=== PATIENT | female | born 1950 | race Caucasian/White ===

== ENCOUNTER → 2023-06-16 14:53 | Outpatient (REF) | payer MEDICARE, OTHER, SELFPAY | LOC: RAD 14:53 | PROVIDERS: ATTENDING PHYSICIAN Specialist; FAMILY PHYSICIAN Family Medicine | DX: L76.32 Postprocedural hematoma of skin and subcutaneous tissue following other procedure (principal) | CPT/HCPCS: 76705 ==

== ENCOUNTER 2023-07-07 23:49 | Emergency (ER) | payer MEDICARE, OTHER, SELFPAY ==
[2023-07-07 23:52] VITALS: BP 118/63
--- NOTE | 2023-07-08 00:30 | ED.GENMED ---
History of Present Illness
General
Chief Complaint: Post Operative Problem(s)
Source: patient, records and spouse
Exam Limitations: none
Time Seen by Provider: 07/08/23 00:00
Nursing documentation reviewed up to this point in time: agreed with
Travel History
Have you had any contact with someone who has COVID-19?: No
Do you have any symptoms of coronavirus? Fever > 100 degrees, chills, cough, shortness of breath, sore throat, loss of taste or smell, muscle aches, or headache?: No
History of Present Illness
History of Present Illness:
Patient is a 73-year-old female who 8 days ago had a tummy tuck which dehisced. Patient does see wound center 1230 this afternoon. Tonight patient went to the bathroom and pulled out this gauze. The wound was healing by secondary intention.
Patient denies lightheadedness or weakness but does feel fatigued.
Past History
Past History
ED Past Medical History: Other (Osteoperosis)
ED Past Surgical History: and Gynecological (Hysterectomy)
Social History
Tobacco: Non-smoker
Alcohol: Other (Regularly)
Drug: None
Personal:
Living: with family
Review of Systems
Review of Systems
All Other Systems: Not applicable
Phy Exam
General Physical Exam
General Presentation: well appearing and no apparent distress
General age: appears stated age
General Skin: warm and dry
General Habitus: normal
General Mental: alert
General Hydration: appears well hydrated
ENT Exam
ENT Exam: neck supple and normocephalic
Gastrointestinal Exam
Gastrointestinal Exam: normal bowel sounds, non tender and other (Dehiscence of wound and left upper approximately 3 x 4 cm as well as dehiscence in a suprapubic wound)
Neurological Exam
Neurological Exam: alert, oriented x3, CN II-XII intact and no motor deficits
Skin Exam
Skin Exam: normal color, warm/dry and other (As stated in the abdominal exam)
Scores
Heart Failure Risk
Heart Failure Risk Score: Not Applicable
Heart Score for Chest Pain Patients
STEMI patient?: Not applicable
Withdrawal Assessment of Alcohol
Withdrawal Assessment Completed?: Not applicable
Course
Vital Signs
Initial and Last Documented VS:
Initial Vital Signs
Temp Pulse Resp BP Pulse Ox
97.6 F 72 24 118/63 98
07/07/23 23:52 07/07/23 23:52 07/07/23 23:52 07/07/23 23:52 07/07/23 23:52
Last Documented Vital Signs
Temp Pulse Resp BP Pulse Ox
97.6 F 72 24 118/63 98
07/07/23 23:52 07/07/23 23:52 07/07/23 23:52 07/07/23 23:52 07/07/23 23:52
*Radiology
Radiology exam reviewed: other (na)
*Pulse Oximetry
Patient hypoxic: no
*EKG
Interpreted by ED Provider?: NA
*Fire Extinguisher Mechanic Interpretation
Rate: Fire Extinguisher Mechanic- N/A
*Critical Care Note
Total Time (30-74mins, 75-104mins- exclusive of procedures): Not Applicable
Update Note
Update Note:
Packing removed from both wounds. Wound is dry. The wounds were repacked with Kerlix and then moistened with normal saline. ABD pads were placed over them as well as a abdominal binder. This is to remain intact until her appointment with wound
at 1230 today
ED Attending Note
-
Portions of this chart may have been created with voice recognition software.� Occasional wrong word or��sound alike� substitutions may have occurred due to the inherent limitations of voice recognition software.
Discharge Plan
Departure
Patient Disposition: Home (Routine Discharge)
Date of Disposition: 07/08/23
Time of Disposition: 00:58
Patient with high blood pressure during this ER visit?: No
Condition: Good
Covid-19: Not Applicable
Discharge Problem:
Dehiscence of operative wound
Instructions: Wound Care (DC)
Prescriptions:
No Action
Tegretol
PRN PRN (Reason: trigeminal neuralgia)
Referrals:
Isabela Cloud MD [Family Provider] - As needed
Activity Restrictions/Additional Instructions:
See the wound center as scheduled tomorrow. Keep dressing in place until then.
Interventions
Interventions:
*Risk Screen - Suicide Last Done: 07/07/23 23:52
*Neglect/Abuse Screening Last Done: 07/07/23 23:52
*ED COVID-19 Vaccine History Last Done: 07/07/23 23:52
ED-Skin Assessment Last Done: 07/08/23 00:55
Discharge Date and Time
Print Language: KHMER
== END 2023-07-08 01:38 | disposition home or self-care (01) ==
LOC: EMR 23:49
PROVIDERS: EMERGENCY PHYSICIAN Emergency Medicine; FAMILY PHYSICIAN Family Medicine
DX: T81.31XA Disruption of external operation (surgical) wound, not elsewhere classified, initial encounter (principal)
CPT/HCPCS: 99281

== ENCOUNTER → 2023-07-08 12:36 | Outpatient (REF) | payer MEDICARE, OTHER, SELFPAY | LOC: WOUND 12:36 | PROVIDERS: ATTENDING PHYSICIAN Surgery; FAMILY PHYSICIAN Family Medicine | DX: T81.31XA Disruption of external operation (surgical) wound, not elsewhere classified, initial encounter (principal); Y83.8 Other surgical procedures as the cause of abnormal reaction of the patient, or of later complication, without mention of misadventure at the time of the procedure; S31.109A Unspecified open wound of abdominal wall, unspecified quadrant without penetration into peritoneal cavity, initial encounter; X58.XXXA Exposure to other specified factors, initial encounter; E78.00 Pure hypercholesterolemia, unspecified; E78.89 Other lipoprotein metabolism disorders; G50.0 Trigeminal neuralgia | CPT/HCPCS: 99204 ==

== ENCOUNTER 2023-07-13 12:32 | Emergency (ER) | payer MEDICARE, OTHER, SELFPAY ==
[2023-07-13 12:42] VITALS: BP 130/86
--- NOTE | 2023-07-13 13:19 | ED.GENMED ---
History of Present Illness
General
Chief Complaint: DVT/Possible Blood Clot
Source: patient
Exam Limitations: none
Time Seen by Provider: 07/13/23 13:02
Nursing documentation reviewed up to this point in time: agreed with
Travel History
Have you had any contact with someone who has COVID-19?: No
Do you have any symptoms of coronavirus? Fever > 100 degrees, chills, cough, shortness of breath, sore throat, loss of taste or smell, muscle aches, or headache?: No
History of Present Illness
History of Present Illness:
73-year-old female with past medical history of recent tummy tuck few weeks ago as well as revision and complication 1 week ago who has been following with wound care presenting to the emergency department today with concerns of DVT to left lower
extremity after feeling calf discomfort and she had an outpatient ordered ultrasound by her surgeon. This was the left peroneal vein. Denies any chest pain shortness of breath or additional concerns no history of blood clots.
Past History
Past History
ED Past Medical History: Other (Osteoperosis)
ED Past Surgical History: and Gynecological (Hysterectomy)
Social History
Tobacco: Non-smoker
Alcohol: Other (Regularly)
Drug: None
Personal:
Living: with family
Review of Systems
Review of Systems
Allergies reviewed?: Yes
All Other Systems: ROS reviewed and negative except as documented in HPI and ROS
Phy Exam
Physical Exam
Physical Exam:
GENERAL: Alert , in no apparent distress
EYE: pupils equal and reactive
NECK: Supple, no significant adenopathy.
ENT: o/p clr, mmm.
CARDIAC: Regular rate and rhythm .
LUNGS: Clear breath sounds bilaterally, no acute respiratory distress, no wheezes/rales/rhonchi
ABDOMEN: Soft, without focal tenderness, no r/g, no cvat
NEUROLOGICAL: Alert and oriented, no focal neuro deficits
SKIN: Warm and dry, skin intact.
MUSCULOSKELETAL: Subtle swelling to the left calf compared to the right good distal pulses normal skin tone good range of motion and strength, well perfused.
PSYCH: Normal and appropriate interaction.
Course
Orders/Labs/Results
Orders:
Orders
07/13/23 12:51
Complete Blood Count/With Diff Urgent
Comprehensive Metabolic Panel Urgent
Prothrombin Time Urgent
07/13/23 13:59
Apixaban [Eliquis] 10 mg PO ONCE ONE
Abnormal Lab Results
07/13/23
12:51
WBC 12.4 H 10^3/uL
(4.8-10.8)
RBC 3.07 L 10^6/uL
(4.20-5.40)
Hgb 9.5 L g/dL
(12.0-16.0)
Hct 28.2 L %
(37.0-47.0)
Plt Count 794 H 10^3/uL
(130-400)
Abs Immat Gran (auto) 0.1 H 10^3/uL
(0-0.05)
Absolute Neuts (auto) 8.1 H 10^3/uL
(1.4-6.5)
Absolute Monos (auto) 1.4 H 10^3/uL
(0.1-0.6)
Immature Gran % 1.1 H %
(0-0.5)
Lymphocytes % 20.4 L %
(20.5-51.1)
Monocytes % 11.1 H %
(1.7-9.3)
Sodium 134 L mmol/L
(135-145)
Creatinine 0.4 L mg/dL
(0.6-1.0)
Total Protein 6.0 L g/dl
(6.3-8.2)
Albumin 3.0 L g/dl
(3.5-5.0)
07/13/23 12:51
07/13/23 12:51
Vital Signs
Initial and Last Documented VS:
Initial Vital Signs
Temp Pulse Resp BP Pulse Ox
99.3 F 83 20 130/86 99
07/13/23 12:42 07/13/23 12:42 07/13/23 12:42 07/13/23 12:42 07/13/23 12:42
Last Documented Vital Signs
Temp Pulse Resp BP Pulse Ox
99.3 F 83 20 130/86 99
07/13/23 12:42 07/13/23 12:42 07/13/23 12:42 07/13/23 12:42 07/13/23 12:42
MDM/Problems Addressed
MDM/Problems Addressed:
73-year-old female presenting to the emergency department today with concerns of left peroneal vein occlusive thrombus. Has had calf pain for the last few days and outpatient ultrasound to confirm this. Denies chest pain. No history of blood
clots but did recently have surgery and infectious complication has been treated as an outpatient over the past week or so. She claims that the infection seems to be improving. This was discussed with patient surgical team that is okay with
starting the anticoagulant otherwise patient is stable for discharge given first dose here and given return precautions for any signs of bleeding. She denies any history of GI bleeding or bleeding concerns.
*Critical Care Note
Total Time (30-74mins, 75-104mins- exclusive of procedures): Not Applicable
ED Attending Note
-
Portions of this chart may have been created with voice recognition software.� Occasional wrong word or��sound alike� substitutions may have occurred due to the inherent limitations of voice recognition software.
Discharge Plan
Departure
Patient Disposition: Home (Routine Discharge)
Date of Disposition: 07/13/23
Time of Disposition: 14:00
Patient with high blood pressure during this ER visit?: No
Condition: Good
Covid-19: Not Applicable
Discharge Problem:
Left leg DVT
Instructions: Deep Vein Thrombosis (Blood Clots in the Legs) (DC)
Prescriptions:
New
Eliquis DVT-PE Treat 30D Start 5 mg (74 tabs) tablets,dose pack
See Rx Instructions .ROUTE .COMPLEX Qty: 74 0RF
Rx Instructions:
orally per package directions
No Action
Tegretol
PRN PRN (Reason: trigeminal neuralgia)
Activity Restrictions/Additional Instructions:
You came to the emergency department today with concerns of swelling discomfort to your left leg. You are found to have a DVT. Please take Eliquis as prescribed dosing 10 mg twice daily for the next 7 days and then 5 mg twice daily ongoing.
Please follow close with the primary care doctor and your outpatient physicians over the next week or 2 for further management. Return to the emergency department for any worsening, new or concerning symptoms.
Interventions
Interventions:
*Risk Screen - Suicide Last Done: 07/13/23 12:42
*General Assessment Last Done: 07/13/23 12:46
*Neglect/Abuse Screening Last Done: 07/13/23 12:46
ED- Cardiac Assessment Last Done: 07/13/23 13:22
ED- Pulmonary Assessment Last Done: 07/13/23 13:22
ED-Peripheral Vascular Assessment Last Done: 07/13/23 13:22
ED-Skin Assessment Last Done: 07/13/23 13:22
Discharge Date and Time
Print Language: UZBEK
[2023-07-13 13:26] LABS: % Basophils 0.6 % (0-2); % Eosinophils 1.6 % (0-6); % Immature Granulocytes 1.1 % (0-0.5); % Lymphocytes 20.4 % (20.5-51.1); % Monocytes 11.1 % (1.7-9.3); % Neutrophils 65.2 % (42.2-75.2); Absolute Basophils 0.1 10^3/uL (0-0.2); Absolute Eosinophils 0.2 10^3/uL (0-0.7); Absolute Immature Granulocytes 0.1 10^3/uL (0-0.05); Absolute Lymphocytes 2.5 10^3/uL (1.2-3.4); Absolute Monocytes 1.4 10^3/uL (0.1-0.6); Absolute Neutrophils 8.1 10^3/uL (1.4-6.5); Hematocrit 28.2 % (37.0-47.0); Hemoglobin 9.5 g/dL (12.0-16.0); Mean Corp Hgb Conc. 33.7 g/dL (33.0-37.0); Mean Corpuscular Hgb 30.9 pg (27.0-31.0); Mean Corpuscular Volume 91.9 fL (81.0-99.0); Nucleated Red Blood Cells % 0 %; Platelet Count 794 10^3/uL (130-400); Red Blood Cell Count 3.07 10^6/uL (4.20-5.40); White Blood Cell Count 12.4 10^3/uL (4.8-10.8)
[2023-07-13 13:32] LABS: INR 1.09; PT 13.9 Sec (11.4-14.6)
[2023-07-13 13:42] LABS: ALT (SGPT) < 10 U/L (0-35); AST (SGOT) 15 U/L (14-36); Alkaline Phosphatase 102 U/L (38-126); Blood Urea Nitrogen 12 mg/dl (7-17); Calcium 9.4 mg/dl (8.4-10.2); Carbon Dioxide 27 mmol/L (22-30); Chloride 100 mmol/L (98-107); Glucose 94 mg/dl (70-99); Sodium 134 mmol/L (135-145); Total Bilirubin 0.3 mg/dl (0.2-1.3); eGFR > 60.00
[2023-07-13] MEDS: ELIQUIS 10 MG PO (14:09)
== END 2023-07-13 14:28 | disposition home or self-care (01) ==
LOC: EMR 12:32
PROVIDERS: Emergency Medicine; EMERGENCY PHYSICIAN Emergency Medicine; FAMILY PHYSICIAN Family Medicine
DX: I82.402 Acute embolism and thrombosis of unspecified deep veins of left lower extremity (principal)
CPT/HCPCS: 99284; 80053; 85025; 85610; 93971

== ENCOUNTER → 2023-07-16 13:10 | Outpatient (REF) | payer MEDICARE, OTHER, SELFPAY | LOC: WOUND 13:10 | PROVIDERS: ATTENDING PHYSICIAN Surgery; FAMILY PHYSICIAN Family Medicine | DX: T81.31XA Disruption of external operation (surgical) wound, not elsewhere classified, initial encounter (principal); S31.109A Unspecified open wound of abdominal wall, unspecified quadrant without penetration into peritoneal cavity, initial encounter; E78.00 Pure hypercholesterolemia, unspecified; E78.89 Other lipoprotein metabolism disorders; G50.0 Trigeminal neuralgia; Y83.8 Other surgical procedures as the cause of abnormal reaction of the patient, or of later complication, without mention of misadventure at the time of the procedure; X58.XXXA Exposure to other specified factors, initial encounter | CPT/HCPCS: 97605 ==

== ENCOUNTER 2023-07-23 01:55 | Emergency (ER) | payer MEDICARE, OTHER, SELFPAY ==
[2023-07-23 02:08] VITALS: BP 101/66
[2023-07-23 03:30] VITALS: BP 136/71; BMI 26.8
--- NOTE | 2023-07-23 04:19 | EDRN ---
awaiting for provider to see the pt
--- NOTE | 2023-07-23 04:55 | EDRN ---
awaiting for provider to see the pt
--- NOTE | 2023-07-23 05:09 | ED.GENMED ---
History of Present Illness
General
Chief Complaint: Catheter/Tube Problem
Source: patient
Time Seen by Provider: 07/23/23 05:09
Nursing documentation reviewed up to this point in time: agreed with
Travel History
Have you had any contact with someone who has COVID-19?: No
Do you have any symptoms of coronavirus? Fever > 100 degrees, chills, cough, shortness of breath, sore throat, loss of taste or smell, muscle aches, or headache?: No
History of Present Illness
History of Present Illness:
Pleasant 73-year-old female who presents with possibly malfunctioning wound VAC. She had abdominoplasty in June. She had an incisional wound VAC placed. Tonight she states that it has not been draining and she feels that the machine is not
working properly. Patient denies fever, chills, nausea or vomiting. Denies increased pain.
Past History
Past History
ED Past Medical History: Other (Osteoperosis)
ED Past Surgical History: and Gynecological (Hysterectomy)
Social History
Tobacco: Non-smoker
Alcohol: Other (Regularly)
Drug: None
Personal:
Living: with family
Review of Systems
Review of Systems
Allergies reviewed?: Yes
All Other Systems: ROS reviewed and negative except as documented in HPI and ROS
Constitutional: Reports no symptoms
EENT: Reports no symptoms
Respiratory: Reports no symptoms
Cardiac: Reports no symptoms
ABD/GI: Reports no symptoms
: Reports no symptoms
Musculoskeletal: Reports no symptoms
Skin: Reports no symptoms
Neurological: Reports no symptoms
Endocrine: Reports no symptoms
Hematologic/Lymphatic: Reports no symptoms
Psychiatric: Reports anxiety
Phy Exam
General Physical Exam
General Presentation: well appearing
General age: appears stated age
General Skin: warm and dry
General Habitus: normal
General Mental: alert
General Hydration: appears well hydrated
General Chronic Disability: contractures
Cardiovascular Exam
Cardiovascular Exam: regular rate/rhythm and no edema
Course
Vital Signs
Initial and Last Documented VS:
Initial Vital Signs
Temp Pulse Resp BP Pulse Ox
98.2 F 94 20 101/66 99
07/23/23 02:08 07/23/23 02:08 07/23/23 02:08 07/23/23 02:08 07/23/23 02:08
Last Documented Vital Signs
Temp Pulse Resp BP Pulse Ox
97.6 F 82 16 126/85 99
07/23/23 05:28 07/23/23 05:28 07/23/23 05:28 07/23/23 05:28 07/23/23 05:28
*Critical Care Note
Total Time (30-74mins, 75-104mins- exclusive of procedures): Not Applicable
Update Note
Update Note:
Nursing was able to evaluate the wound VAC. It appears to be intact. There is 1 piece of plastic that was not fully sealed. Nursing removed that and fix the seal. Wound VAC was dependent on position and when patient moved positions, the fluid
was able to flow. Patient tolerated procedure well with no immediate adverse effects. Patient due to see her physician today to have the wound VAC removed.
ED Attending Note
-
Portions of this chart may have been created with voice recognition software.� Occasional wrong word or��sound alike� substitutions may have occurred due to the inherent limitations of voice recognition software.
Discharge Plan
Departure
Patient Disposition: Home (Routine Discharge)
Date of Disposition: 07/23/23
Time of Disposition: 05:22
Patient with high blood pressure during this ER visit?: No
Condition: Good
Discharge Problem:
Encounter for management of vacuum-assisted closure (VAC) of wound
Instructions: Wound Care (DC), Negative Pressure Wound Therapy
Prescriptions:
No Action
Eliquis DVT-PE Treat 30D Start 5 mg (74 tabs) tablets,dose pack
See Rx Instructions .ROUTE .COMPLEX Qty: 74 0RF
Rx Instructions:
orally per package directions
carbamazepine [Tegretol] 200 mg Tablet
200 mg PO BID PRN (Reason: pain)
Referrals:
Isabela Cloud MD [Family Provider] -
Activity Restrictions/Additional Instructions:
It was a pleasure meeting you and taking part in your care. We hope for your continued healing and wellness.
Please read discharge instructions in their entirety. However, they are for general education and may not describe your exact diagnosis at discharge. Information on your ER visit and medical conditions were discussed with you along with appropriate
follow up information...
If indicated, please take your medications as instructed and indicated on discharge paperwork.
Please schedule a follow up appointment as directed. Call to schedule an appointment
Please return to the emergency department with ANY change in, persisting, or worsening of symptoms. If any of your symptoms do not improve, or persist, or become more severe within 6-12 hours, please return to the emergency department for further
care.
Please return to the emergency department if you develop a headache, neck pain/stiffness, fever greater than 100.4F, chest pain, shortness of breath, persistent nausea, vomiting, slurred speech, difficulty walking, numbness/tingling, weakness, signs
of infection or any other symptoms that are worrisome to you.
If you have any questions or concerns please do not hesitate to call the Hospital at or E-mail me directly at [email or web address]
Interventions
Interventions:
*Risk Screen - Suicide Last Done: 07/23/23 02:08
*General Assessment Last Done: 07/23/23 02:08
*Neglect/Abuse Screening Last Done: 07/23/23 02:08
ED- Fall Risk Assessment Last Done: 07/23/23 02:08
*ED COVID-19 Vaccine History Last Done: 07/23/23 02:08
*Nursing Disposition Last Done: 07/23/23 05:28
OU-Heiqsb-Kfgbvwoktn Assessment Last Done: 07/23/23 03:30
ED-Female Genitourinary Assessment Last Done: 07/23/23 03:30
ED-Skin Assessment Last Done: 07/23/23 03:30
Discharge Date and Time
Discharge Date/Time: 07/23/23 05:50
Print Language: TURKISH
[2023-07-23 05:28] VITALS: BP 126/85
--- NOTE | 2023-07-23 05:37 | EDRN ---
Dr. Merritt at the pts bedside speaking with the pt
== END 2023-07-23 05:50 | disposition home or self-care (01) ==
LOC: EMR 01:55
PROVIDERS: EMERGENCY PHYSICIAN Student in an Organized Health Care Education/Training Program; FAMILY PHYSICIAN Family Medicine
DX: Z46.89 Encounter for fitting and adjustment of other specified devices (principal); Z90.710 Acquired absence of both cervix and uterus
CPT/HCPCS: 99282; 97606; 99213

== ENCOUNTER → 2023-07-30 14:12 | Outpatient (REF) | payer MEDICARE, OTHER, SELFPAY | LOC: WOUND 14:12 | PROVIDERS: ATTENDING PHYSICIAN Surgery; FAMILY PHYSICIAN Family Medicine | DX: T81.31XA Disruption of external operation (surgical) wound, not elsewhere classified, initial encounter (principal); Y83.8 Other surgical procedures as the cause of abnormal reaction of the patient, or of later complication, without mention of misadventure at the time of the procedure; E78.00 Pure hypercholesterolemia, unspecified; Z79.01 Long term (current) use of anticoagulants; E78.89 Other lipoprotein metabolism disorders; G50.0 Trigeminal neuralgia | CPT/HCPCS: 97606; 99213 ==

== ENCOUNTER → 2023-07-30 15:48 | Outpatient (REF) | payer MEDICARE, OTHER, SELFPAY ==
[2023-07-30 16:09] VITALS: BP 147/68; BP_SYST 98
[2023-07-30 16:54] VITALS: BP 129/65
== END ==
LOC: RADI 15:48
PROVIDERS: ATTENDING PHYSICIAN Specialist; FAMILY PHYSICIAN Family Medicine
DX: L76.34 Postprocedural seroma of skin and subcutaneous tissue following other procedure (principal); Y83.8 Other surgical procedures as the cause of abnormal reaction of the patient, or of later complication, without mention of misadventure at the time of the procedure
CPT/HCPCS: 10030; 87015; 87070; 87205; C1729; C1769

== ENCOUNTER → 2023-08-06 09:14 | Outpatient (REF) | payer MEDICARE, OTHER, SELFPAY | LOC: WOUND 09:14 | PROVIDERS: ATTENDING PHYSICIAN Surgery; FAMILY PHYSICIAN Family Medicine | DX: T81.31XA Disruption of external operation (surgical) wound, not elsewhere classified, initial encounter (principal); Y83.8 Other surgical procedures as the cause of abnormal reaction of the patient, or of later complication, without mention of misadventure at the time of the procedure; E78.00 Pure hypercholesterolemia, unspecified; E78.89 Other lipoprotein metabolism disorders; G50.0 Trigeminal neuralgia; Z79.01 Long term (current) use of anticoagulants | CPT/HCPCS: 97606; 99213 ==

== ENCOUNTER 2023-08-13 15:24 | Inpatient (IN) | payer MEDICARE, OTHER, SELFPAY ==
[2023-08-13 12:15] VITALS: BP 102/66
--- NOTE | 2023-08-13 13:30 | ED.GENMED ---
History of Present Illness
General
Chief Complaint: Post Operative Problem(s)
Source: patient and physician (Referring surgeon)
Exam Limitations: none
Time Seen by Provider: 08/13/23 12:45
Nursing documentation reviewed up to this point in time: agreed with
Travel History
Have you had any contact with someone who has COVID-19?: No
Do you have any symptoms of coronavirus? Fever > 100 degrees, chills, cough, shortness of breath, sore throat, loss of taste or smell, muscle aches, or headache?: No
History of Present Illness
History of Present Illness:
73-year-old female with a past medical history of trigeminal neuralgia, depression, DVT on Eliquis who presents to the emergency room for evaluation of surgical wound infection. Patient had an abdominoplasty in June with Dr. Crook. This has been
complicated by infection patient has had abscesses drained by interventional radiology and has had a wound VAC. Most recently finished a course of Bactrim 4 days ago for wound infection. Today had a follow-up visit in the office with Dr. Crook
and was having increasing pain around her right lower quadrant abdominal incision; in the office wound was opened up and had foul-smelling purulent drainage that was sent for culture. Wound was packed and patient was referred to the emergency room
to be admitted for IV antibiotics and wound care. Patient has not had any fevers or chills.
Past History
Past History
ED Past Medical History: Other (Osteoperosis)
ED Past Surgical History: and Gynecological (Hysterectomy)
Social History
Tobacco: Non-smoker
Alcohol: Other (Regularly)
Drug: None
Personal:
Living: with family
Review of Systems
Review of Systems
All Other Systems: ROS reviewed and negative except as documented in HPI and ROS
Constitutional: Denies fever or chills
Respiratory: Denies trouble breathing
Cardiac: Denies chest pain
ABD/GI: Reports abdominal pain (Incisional pain); Denies nausea or vomiting
: Denies flank pain
Musculoskeletal: Denies neck pain or back pain
Skin: Reports other (Redness and drainage from incision)
Neurological: Denies headache
Phy Exam
Physical Exam
Physical Exam:
General: Awake, alert, oriented x3; no acute distress
Head: Normocephalic, atraumatic
Eyes: Conjunctiva normal, sclera anicteric
Throat: Airway intact, handling secretions
Neck: Trachea midline, supple without meningismus
Lungs: Clear to auscultation bilaterally, no wheezing, rales, rhonchi
Heart: Regular rate and rhythm, no murmurs, gallops, or rubs
Abd: Soft, non distended patient has; 3 large incisional wounds in the lower abdomen which are packed with moistened gauze; there is a rim of erythema around the wounds; she is tender to palpation across lower abdomen most markedly around her right
lower quadrant wound
Neuro: No gross deficits
Extremities: Warm and well-perfused without any edema
Scores
Heart Failure Risk
Heart Failure Risk Score: Not Applicable
Heart Score for Chest Pain Patients
STEMI patient?: Not applicable
Withdrawal Assessment of Alcohol
Withdrawal Assessment Completed?: Not applicable
Course
Orders/Labs/Results
Orders:
Orders
08/13/23 13:26
PLASTIC SURGERY CONSULT Urgent
Consulting Provider: Solo Crook
Was physician already notified: Yes
Piperacillin/Tazo 3.375 Gram [Zosyn] 3.375 gram in 50 ml IV NOW
Vancomycin [Vancocin] 2,000 mg 0.9% Sodium Chloride 500 ml [Nss] 500 ml IV NOW
08/13/23 13:37
Complete Blood Count/With Diff Urgent
Comprehensive Metabolic Panel Urgent
Lactate Level [Lactic Acid] Urgent
Blood Culture Q30M
MARISSA Source: Blood/Venous
Specimen Description:
08/13/23 13:52
Blood Culture Q30M
MARISSA Source: Blood/Venous
Specimen Description:
Abnormal Lab Results
08/13/23
13:37
WBC 16.0 H 10^3/uL
(4.8-10.8)
RBC 2.69 L 10^6/uL
(4.20-5.40)
Hgb 8.1 L g/dL
(12.0-16.0)
Hct 24.3 L %
(37.0-47.0)
Plt Count 1205 H 10^3/uL
(130-400)
Abs Immat Gran (auto) 0.1 H 10^3/uL
(0-0.05)
Absolute Neuts (auto) 12.7 H 10^3/uL
(1.4-6.5)
Absolute Monos (auto) 1.5 H 10^3/uL
(0.1-0.6)
Immature Gran % 0.9 H %
(0-0.5)
Neutrophils % 79.7 H %
(42.2-75.2)
Lymphocytes % 9.6 L %
(20.5-51.1)
Sodium 130 L mmol/L
(135-145)
Carbon Dioxide 18 L mmol/L
(22-30)
Creatinine 0.4 L mg/dL
(0.6-1.0)
Glucose 170 H mg/dl
(70-99)
Alkaline Phosphatase 174 H U/L
(38-126)
Albumin 3.1 L g/dl
(3.5-5.0)
08/13/23 13:37
08/13/23 13:37
Vital Signs
Initial and Last Documented VS:
Initial Vital Signs
Temp Pulse Resp BP Pulse Ox
36.8 C 113 16 102/66 98
08/13/23 12:15 08/13/23 12:15 08/13/23 12:15 08/13/23 12:15 08/13/23 12:15
Last Documented Vital Signs
Temp Pulse Resp BP Pulse Ox
36.8 C 113 16 102/66 98
08/13/23 12:15 08/13/23 12:15 08/13/23 12:15 08/13/23 12:15 08/13/23 12:15
MDM/Problems Addressed
Differential Diagnosis Includes:
Postoperative wound infection
MDM/Problems Addressed:
73-year-old female presents from plastic surgery office�was referred for admission and IV antibiotics to treat incisional wound infection/abscess that was drained in the office earlier today. She has been dealing with issues with postoperative
incisional infections, had abscess drained by interventional radiology and recent course of Bactrim finished on Wednesday. She arrives to us tachycardic but otherwise normal vitals. Physical exam as above. Plan to place an IV send labs including a
CBC and a CMP, lactate, blood cultures. Wound culture sent in the office per referring surgeon. Discussed case with plastic surgery and recommended initial wound care with saline moistened Kerlix dressings to the abdominal wound twice daily with
saline moistened ribbon gauze packing in the right lower abdominoplasty wound twice daily. Plan for admission pending initial workup. Will cover with broad-spectrum antibiotics.
Labs reviewed: CBC shows leukocytosis to 16, anemia at 8.1 which is chronic. She has markedly elevated platelet count will need further assessment. CMP shows some hyperglycemia and mild hyponatremia. Plan for admission for continued management.
Discussed with hospitalist for admission.
*Pulse Oximetry
Patient hypoxic: no
*Critical Care Note
Total Time (30-74mins, 75-104mins- exclusive of procedures): Not Applicable
Data Reviewed
Review of Other/Old Records Reveals: Labs, Records and Testing
Source: patient, spouse and physician (Referring surgeon)
Patient Management
Discussion with other providers: Hospitalist (Discussed with hospitalist) and Carburetor Specialist (Discussed with plastic surgery)
Escalation/DeEscalation of care consider admission/obs:
Admission indicated
ED Attending Note
-
Portions of this chart may have been created with voice recognition software.� Occasional wrong word or��sound alike� substitutions may have occurred due to the inherent limitations of voice recognition software.
Discharge Plan
Departure
Patient Disposition: Admit
Date of Disposition: 08/13/23
Time of Disposition: 14:08
Admit to doctor: Maxime
Presentation/result/management discussed w/ accepting MD/DO: Hospitalist
Discharge Problem:
Postoperative wound infection, Thrombocytosis
Prescriptions:
No Action
carbamazepine [Tegretol] 200 mg Tablet
200 mg PO BID PRN (Reason: mild pain)
Eliquis DVT-PE Treat 30D Start 5 mg (74 tabs) tablets,dose pack
5 mg PO BID
ascorbic acid (vitamin C) [Vitamin C] 1,000 mg Tablet
1,000 mg PO DAILY
acetaminophen [Tylenol Extra Strength] 500 mg Tablet
1,000 mg PO Q6H PRN (Reason: mild pain)
carboxymethylcellulose sodium [Refresh] 1 % Drops, Liquid Gel
1 drp BOTH EYES DAILY
Dakin's Solution 0.125 % Solution
1 applic TOPICAL MOWE
Interventions
Interventions:
*Risk Screen - Suicide Last Done: 08/13/23 12:15
*General Assessment Last Done: 08/13/23 12:15
*Neglect/Abuse Screening Last Done: 08/13/23 12:15
Discharge Date and Time
Print Language: DIVEHI
[2023-08-13 13:47] LABS: % Basophils 0.4 % (0-2); % Eosinophils 0.1 % (0-6); % Immature Granulocytes 0.9 % (0-0.5); % Lymphocytes 9.6 % (20.5-51.1); % Monocytes 9.3 % (1.7-9.3); % Neutrophils 79.7 % (42.2-75.2); Absolute Basophils 0.1 10^3/uL (0-0.2); Absolute Immature Granulocytes 0.1 10^3/uL (0-0.05); Absolute Lymphocytes 1.5 10^3/uL (1.2-3.4); Absolute Monocytes 1.5 10^3/uL (0.1-0.6); Absolute Neutrophils 12.7 10^3/uL (1.4-6.5); Hematocrit 24.3 % (37.0-47.0); Hemoglobin 8.1 g/dL (12.0-16.0); Mean Corp Hgb Conc. 33.3 g/dL (33.0-37.0); Mean Corpuscular Hgb 30.1 pg (27.0-31.0); Mean Corpuscular Volume 90.3 fL (81.0-99.0); Mean Platelet Volume 8.1 fL (7.4-10.4); Nucleated Red Blood Cells % 0 %; Platelet Count 1205 10^3/uL (130-400); Red Blood Cell Count 2.69 10^6/uL (4.20-5.40); Red Cell Dist. Width 13.9 % (11.5-14.5)
[2023-08-13 13:54] VITALS: BMI 22.6
[2023-08-13 14:02] LABS: ALT (SGPT) 10 U/L (0-35); AST (SGOT) 16 U/L (14-36); Albumin 3.1 g/dl (3.5-5.0); Alkaline Phosphatase 174 U/L (38-126); Blood Urea Nitrogen 16 mg/dl (7-17); Calcium 9.5 mg/dl (8.4-10.2); Carbon Dioxide 18 mmol/L (22-30); Chloride 101 mmol/L (98-107); Estimated Creatinine Clearance 58 ml/min; Glucose 170 mg/dl (70-99); Potassium 4.9 mmol/L (3.5-5.1); Sodium 130 mmol/L (135-145); Total Bilirubin 0.2 mg/dl (0.2-1.3); Total Protein 6.8 g/dl (6.3-8.2); eGFR > 60.00
[2023-08-13 14:06] LABS: Lactic Acid 1.5 mmol/L (0.7-2.0)
--- NOTE | 2023-08-13 14:09 | HPS.HSE ---
Addendum entered and electronically signed by Irineo Sanders MD 08/14/23 06:15:
I saw and examined the patient.
The PIECE DYER or PA's note was reviewed and I agree with the note.
Comment: Ongoing abscesses post abdominoplasty in June received instructions from Dr. Crook plastic surgery as the patient continues to have drainage of foul-smelling apparent recurrence sent for culture from his office and admitted now here for
wound care and IV antibiotics(meets criteria for clinical sepsis with leukocytosis and tachycardia) concur with combination of Zosyn and vancomycin until obtaining further culture results and will follow wound care as directed by plastic surgery
wound care team to follow patient does present with leukocytosis and prior thrombocytosis seems to be increased presumably reactive. She presents with hyponatremia and metabolic acidosis presumed in relation to underlying dehydration and
insensible losses will hydrate with IV fluids monitor electrolytes and renal status closely consultation for further plastic surgery follow-up placed by ED. she will be continued on her prior anticoagulant therapy with apixaban in relation to prior
DVT rest of comorbidities as outlined in PIECE DYER note.
Original Note:
Family Physician
-
Family Physician:
Chief Complaint
-
abdominal wound
History of Present Illness
73-year-old female with a past medical history of trigeminal neuralgia, depression, DVT on Eliquis who presents to the emergency room for evaluation of surgical wound infection. Patient had an abdominoplasty in June with Dr. Crook. This has been
complicated by infection patient has had abscesses drained by interventional radiolog two weeks ago. Most recently finished a course of Bactrim 4 days ago for wound infection. patient stated worsening pain at the site. she could not move. it was
foul smelling. Today had a follow-up visit in the office with Dr. Crook. the wound was opened up and had foul-smelling purulent drainage that was sent for culture. Wound was packed and patient was referred to the emergency room to be admitted
for IV antibiotics and wound care. Patient has not had any fevers or chills. denied MCKNIGHT, dizzy or syncopal episode. denied chest pain, sob. denied n/v/d. denied dysuria or hematuria.
received iv vanco and Zosyn. admitting for further management.
Medical History
Past Medical History
Past Medical History: Reports Other
Additional Past Medical History:
DVT
depression
trigeminal neuralgia
Past Surgical History: Reports Other
Additional Past Surgical History:
hysterectomy
c section
Social History
Tobacco: Non-smoker
Alcohol: None
Drug: None
Personal:
Living: With Family
Family History
Family History: Not pertinent
Allergies / Home Medications
Allergies reflects when Allergies were last updated in [employer].
Home Medications with original date entered in [employer]
Allergy/Medication List:
Allergies
Allergy/AdvReac Type Severity Reaction Status Date / Time
No Known Allergies Allergy Verified 08/13/23 12:14
Home Medications
carbamazepine 200 mg tablet (Tegretol) 200 mg PO BID PRN mild pain 07/23/23
apixaban 5 mg (74 tabs) tablets in a dose pack (Eliquis DVT-PE Treat 30D Start) 5 mg PO BID 07/30/23
acetaminophen 500 mg tablet (Tylenol Extra Strength) 1,000 mg PO Q6H PRN mild pain 08/13/23
ascorbic acid (vitamin C) 1,000 mg tablet (Vitamin C) 1,000 mg PO DAILY 08/13/23
carboxymethylcellulose sodium 1 % eye liquid gel drops 1 drp BOTH EYES DAILY 08/13/23
sodium hypochlorite 0.125 % solution (Dakin's Solution) 1 applic topical MOWE abdomen 08/13/23
Review of Systems
-
Constitutional: Reports No Symptoms
EENT: Reports No Symptoms
Respiratory: Reports No Symptoms
Cardiac: Reports No Symptoms
Abdomen/GI: Reports No Symptoms
: Reports No Symptoms
Musculoskeletal: Reports No Symptoms
Skin: Reports Other (abdominal wound)
Neurological: Reports No Symptoms
Endocrine: Reports No Symptoms
Hematologic/Lymphatic: Reports No Symptoms
Psych: Reports No Symptoms
Physical Exam
Vital Signs
Vital Signs
Temp Pulse Resp BP Pulse Ox
98.2 F 113 16 102/66 98
08/13/23 12:15 08/13/23 12:15 08/13/23 12:15 08/13/23 12:15 08/13/23 12:15
Physical Exam
General: Well Developed, Well Nourished and No Apparent Distress
HEENT: NormoCephalic, Moist mucous membranes and Atraumatic
Respiratory: Clear
Cardiac: S1/S2 and Regular Rhythm; No Murmur or Rub
GI: Soft, Non Tender, Non Distended and Normal Bowel Sounds; No Organomegaly
Rectal: Deferred by Provider
Musculoskeletal: No Clubbing, No Cyanosis and No Edema
Skin: Rash and Other (abdominal wound dressing c/d/i)
Neuro: AO x 3 and Nonfocal/grossly intact
Laboratory Results
-
08/13/23 13:37
08/13/23 13:37
Laboratory Results
Lactic Acid 1.5 mmol/L (0.7-2.0) 08/13/23 13:37
Total Bilirubin 0.2 mg/dl (0.2-1.3) 08/13/23 13:37
AST 16 U/L (14-36) 08/13/23 13:37
ALT 10 U/L (0-35) 08/13/23 13:37
Alkaline Phosphatase 174 U/L (38-126) H 08/13/23 13:37
Data Reviewed
-
Lab Data: Labs Reviewed by me
Impression/Plan
-
# Sepsis likely from infected surgical wound status post abdominoplasty
-I&D at plastic surgeon office
-Cultures sent
-Saline moistened Kerlix dressing to abdominal wound twice a day with saline moistened ribbon gauze packing to her right lower abdominal wound twice a day
-Wound care consulted
-Sepsis as evident by WBC 16.0, tachycardia
-blood culture sent from ER
-fluids continued
-iv vanco and Zosyn continued
# Acute on chronic anemia
-Hemoglobin 8.1
-No active bleeding
-Continue to monitor
#thrombocytosis likely reactive from acute infection
-platelets 1205
-ctm
# Hyponatremia/metabolic acidosis likely dehydration
-Sodium 130, CO2 18
-Normal saline continued
-Monitor BMP in a.m.
# History of DVT
-Eliquis continued
# Depression
-Tegretol continued
# CODE STATUS
-Full code
[2023-08-13] MEDS: ZOSYN 50 IV ×2 (14:15→20:36)
[2023-08-13] MEDS: VANCOCIN 275 MG IV (15:22)
[2023-08-13 18:10] VITALS: BP 110/52
[2023-08-13] MEDS: NSS 1000 IV (18:15)
--- NOTE | 2023-08-13 18:42 | PHA.VAN.IN ---
Assessment
- Assessment
Renal Function: Appears similar to baseline
Concomitant Antimicrobials: ZOSYN
- Previous Dosing Experience
Previous Regimen: NONE
AUC Dosing Plan
- Dosing Variables
Dosing Weight (kg): 50.7
Dosing CrCl (ml/min): 58
Vd coefficient (L/kg): 0.7
- Empiric Dosing
Initial / Loading Dose: 1250MG
Maintenance Regimen: 1GM IV Q24H
Estimated AUC (mcg*h/mL): 557
Estimated Peak (mcg*h/mL): 39.3
Estimated Trough (mcg/ml): 11.7
Estimated Half Life (H): 13.2
Pharmacokinetics Vancomycin I
- -
Patient Age: 73
Patient Sex: Female
Vancomycin Day #: 1
Indication: Skin And Soft Tissue (POST-OP SITE INFECTION/SEPSIS)
Requesting Provider: KERMIT
Height / Weight:
Height 4 ft 11 in
Actual Weight 50.7 kg
Pertinent Past Medical History: RECENT ABDOMINOPLASTY
- Vital Signs / Lab Results
Temp Pulse Resp BP Pulse Ox
98.0 F 98 20 110/52 95
08/13/23 18:10 08/13/23 18:10 08/13/23 18:10 08/13/23 18:10 08/13/23 18:10
Lab Results - Hematology
08/13/23
13:37
WBC 16.0 H
Lab Results - Chemistry
08/13/23
13:37
BUN 16
Creatinine 0.4 L
Estimated Creat Clear 58
Albumin 3.1 L
08/13/23
13:37
Lactic Acid 1.5
[2023-08-13] MEDS: ELIQUIS 5 MG PO (20:36)
[2023-08-13] MEDS: TYLENOL 650 MG PO (20:42)
[2023-08-13 23:00] VITALS: BP 97/54
[2023-08-14] MEDS: ZOSYN 50 IV ×4 (01:22→19:48)
[2023-08-14] MEDS: TYLENOL 650 MG PO ×5 (03:41→21:37)
[2023-08-14] MEDS: TEGRETOL 200 MG PO ×2 (03:44→19:56)
[2023-08-14] MEDS: VANCOCIN 200 IV (05:53)
[2023-08-14 07:00] VITALS: BP 103/60
[2023-08-14 07:37] LABS: Mean Corp Hgb Conc. 33.3 g/dL (33.0-37.0); Mean Corpuscular Hgb 30.2 pg (27.0-31.0); Mean Corpuscular Volume 90.6 fL (81.0-99.0); Mean Platelet Volume 8.3 fL (7.4-10.4); Platelet Count 989 10^3/uL (130-400); Red Blood Cell Count 2.12 10^6/uL (4.20-5.40); White Blood Cell Count 11.2 10^3/uL (4.8-10.8)
[2023-08-14 08:00] LABS: Hematocrit 19.2 % (37.0-47.0); Hemoglobin 6.4 g/dL (12.0-16.0)
[2023-08-14 08:19] LABS: Blood Urea Nitrogen 13 mg/dl (7-17); Carbon Dioxide 18 mmol/L (22-30); Chloride 106 mmol/L (98-107); Estimated Creatinine Clearance 58 ml/min; Glucose 101 mg/dl (70-99); Potassium 4.7 mmol/L (3.5-5.1); Sodium 134 mmol/L (135-145); eGFR > 60.00
[2023-08-14] MEDS: ELIQUIS 5 MG PO ×2 (08:22→19:48)
[2023-08-14] MEDS: REFRESH CELLUVISC GEL 1 DROPS BOTH EYES (08:22)
[2023-08-14] MEDS: NSS 1000 IV (08:26)
--- NOTE | 2023-08-14 10:24 | W.PN.HOSP.TC ---
Today's Communication/Plan
-
Transfuse 1 unit of packed red blood cells
Order iron levels
Continue Vanco and Zosyn/initial blood cultures growing gram-positive cocci
Reduce IV fluids may have to also add sodium bicarb but would recheck after blood transfusion
Assessment / Plan
Assessment / Plan
73-year-old female with a past medical history of trigeminal neuralgia, depression, DVT on Eliquis who presents to the emergency room for evaluation of surgical wound infection. Patient had an abdominoplasty in June with Dr. Crook. This has been
complicated by infection patient has had abscesses drained by interventional radiolog two weeks ago. Most recently finished a course of Bactrim 4 days ago for wound infection. patient stated worsening pain at the site. she could not move. it was
foul smelling. Today had a follow-up visit in the office with Dr. Crook. the wound was opened up and had foul-smelling purulent drainage that was sent for culture. Wound was packed and patient was referred to the emergency room to be admitted
for IV antibiotics and wound care. Patient has not had any fevers or chills. denied MCKNIGHT, dizzy or syncopal episode. denied chest pain, sob. denied n/v/d. denied dysuria or hematuria.
received iv vanco and Zosyn. admitting for further management.
# Sepsis likely from infected surgical wound status post abdominoplasty
-Prelim results of blood cultures show gram-positive cocci/MRSA?
-I&D at plastic surgeon office
-Cultures wound and blood
-Saline moistened Kerlix dressing to abdominal wound twice a day with saline moistened ribbon gauze packing to her right lower abdominal wound twice a day
-Wound care consulted
-Sepsis as evident by WBC 16.0, tachycardia
-blood culture sent from ER
-fluids continued
-iv vanco and Zosyn continued
# Acute on chronic anemia
-Hemoglobin 8.1>>> now at 6.4
-Partly dilutional/but also could be in relation to chronic blood loss
-No active bleeding
-Continue to monitor/will give 1 unit of packed red blood cells
-obtain iron levels
#thrombocytosis likely reactive from acute infection
-platelets 1205
-ctm
# Hyponatremia/metabolic acidosis likely dehydration
-Sodium 130, CO2 18
-Normal saline continued
-Monitor BMP in a.m.
# History of DVT
-Eliquis continued
# Depression
-Tegretol continued
# CODE STATUS
-Full code
Anticipated Discharge: 24 - 48 hours
Subjective/Interval History
-
Date of Service: August 14, 2023
Admits to being fatigued at home and this process. She has no other new complaints other than the usual in relation to constant drainage from her abdomen wound
Objective Data
-
Labs:
Laboratory Results
08/14/23
06:25
WBC 11.2 H
Hgb 6.4 L* D
Hct 19.2 L*
Plt Count 989 H
Sodium 134 L
Potassium 4.7
Chloride 106
Carbon Dioxide 18 L
BUN 13
Creatinine 0.5 L
Glucose 101 H
Calcium 9.0
Vital Signs:
Vital Signs
Temp Pulse Resp BP Pulse Ox
97.8 F 79 16 103/60 98
08/14/23 07:00 08/14/23 07:00 08/14/23 07:00 08/14/23 07:00 08/14/23 07:00
I&O
08/13/23 08/14/23 08/15/23
06:59 06:59 06:59
Intake Total 1660 / 1660
Balance 1660 / 1660
Review of Systems
-
History Source: Patient
All other systems: Reviewed and negative
Constitutional: Denies Fever
Respiratory: Reports No Symptoms
Cardiac: Reports No Symptoms
Abdomen/GI: Reports Other (Right sided purulent drainage abdominal dressing)
Musculoskeletal: Reports No Symptoms
Physical Exam
-
General: Well Developed
HEENT: Normocephalic
Respiratory: Clear to Auscultation
Cardiac: Regular Rhythm
GI: Soft, Nontender, Tender and Other (Purulent appearing drainage from right lower quadrant)
Skin: Warm
Psych: Calm
Data Reviewed
-
Total Time Spent with Patient (in minutes): 567
Labs: Labs Reviewed by me (Globin down to 6.4/MCV of 90.6/platelet count down to 989)
--- NOTE | 2023-08-14 11:08 | W.PN.PLAS ---
Progress Note
Subjective Data
Pt well known to me for abdominoplasty 07/07/23 complicated by partial abdominal flap necrosis, DVT of peroneal vein, placement of VAC for open wound. Pt has a h/o etoh abuse and malnutrition according to a family member.
Pt was noted in my office yesterday to be tachypneic, with elevated pulse rate and obvious lower right incision abscess. The abscess fortunately was drained and cultured in the office. She was admitted yesterday for IV antibiotics, treatment of
anemia, and observation. She is feeling much better with less pain.
Objective Data
Vital Signs
Temp Pulse Resp BP Pulse Ox
97.8 F 79 16 103/60 96
08/14/23 07:00 08/14/23 07:00 08/14/23 07:00 08/14/23 07:00 08/14/23 08:35
Intake and Output
08/13/23 08/14/23 08/15/23
06:59 06:59 06:59
Intake Total 1660 / 1660
Balance 1660 / 1660
Intake:
Oral fluids 480 / 480
IV fluids (Total) 880 / 880
IV piggybacks 300 / 300
Other:
Number of approximated MODERATE 1
amounts of urine
Lab Results
08/14/23 06:25
08/14/23 06:25
Microbiology Results
08/13/23 13:37 Blood/Venous Blood Culture - Preliminary
Positive culture in progress
08/13/23 13:37 Blood/Venous Gram Stain - Preliminary
Review of Systems
Review of Systems: Satisfactory Appetite
Physical Exam
Wound:
Wound right abdominoplasty incision repacked. Bloody but no obvious purulence. Wound tracks medially and laterally. Repacked with saline moistend guaze.
Wound: Draining: Yes (blood tinged fluid and small clots. much improved over yesterday)
Assessment / Plan
Wound stable. Patient continues to improve. Doing well. Patient anxious to go.
Patient is receiving 1unit prbcs today. Await cultures. ID consulted. Surgically stable for discharge tomorrow pending results of culture [if PO abx possible].
Visiting Nurse care ordered / not ordered.
Wound care discussed with patient.
Follow up within days.
Follow up with family physician for any medical issues.
Patient given any appropriate scripts at office pre op visit.
[2023-08-14 11:42] LABS: Iron 31 ug/dl (37-170)
--- NOTE | 2023-08-14 11:49 | PHA.VAN.FU ---
Vancomycin Assessment / Plan
- Assessment
Renal Function: Stable
WBC's are: Trending Down
In the past 24 hrs, patient has been: Afebrile
Concomitant Antimicrobials: pip/tazo
- Dosing Plan
Continue: vancomycin 1000 mg q24h
- Monitoring Plan
No level(s) ordered at this time: consider levels when pt reaches steady state
- Follow Up
Pharmacy will continue to follow.
Vancomycin Follow UP
- -
Patient Age: 73
Patient Sex: Female
Vancomycin Day #: 2
Indication: Skin And Soft Tissue (POST-OP SITE INFECTION/SEPSIS)
Requesting Provider: KERMIT
Height / Weight:
Height 4 ft 11 in
Actual Weight 50.7 kg
Pertinent Past Medical History: RECENT ABDOMINOPLASTY
- Vital Signs / Lab Results
Temp Pulse Resp BP Pulse Ox
97.8 F 79 16 103/60 96
08/14/23 07:00 08/14/23 07:00 08/14/23 07:00 08/14/23 07:00 08/14/23 08:35
Lab Results - Hematology
08/13/23 08/14/23
13:37 06:25
WBC 16.0 H 11.2 H
Lab Results - Chemistry
08/13/23 08/14/23
13:37 06:25
BUN 16 13
Creatinine 0.4 L 0.5 L
Estimated Creat Clear 58 58
Albumin 3.1 L
08/13/23
13:37
Lactic Acid 1.5
Microbiology Results
08/13/23 13:37 Blood Culture - Preliminary
Blood/Venous Positive culture in progress
Gram Stain - Preliminary
[2023-08-14 11:51] LABS: Percent Saturation 24 % (20-50); Total Iron Binding Capacity 127 ug/dl (265-497)
[2023-08-14 12:35] VITALS: BP 110/61
[2023-08-14 12:49] LABS: Folate 7.2 ng/ml (2.76-20); Vitamin B12 > 1000 pg/ml (239-931)
[2023-08-14 12:51] VITALS: BP 113/59
--- NOTE | 2023-08-14 13:32 | W.PN.UPDATE ---
Update Note
Progress Note Update
Blood cultures results noting coag negative staph spoke to infectious disease financial analysis consultant input. Continue vancomycin for now and Zosyn to further evaluation wound cultures still pending
--- NOTE | 2023-08-14 14:17 | CON.ID ---
Consultation
-
Date/Time Consultation Requested: 08/14/23 13:40
Date/Time Consultation Performed: 08/14/23 14:17
Requesting Provider: Dr Sanders
Performing Provider: Dr Knutson
Reason for Consultation: wound infeciton
Chief Complaint / Past History
Chief Complaint
surgical site infection
History of Present Illness
Ms Kumar is a 73 year old female with history of trigeminal neuralgia who presented here yesterday for surgical site infection from her plastic surgeon Dr Crook's office, had abdominoplasty without mesh in june. She has drainage of foul
smelling fluid. Two weeks ago she had drainage of the abscss with IR - culture with rare strep species that could not be further IDd. 08/12 one of two blood cultures with probable CONS by verigene, 08/12 a culture done by Dr Crook with gram stain
with few gpcs, culture in progress, anaerobic culture also in progress, no fungal or afb cultures, a mrsa screen is pending. currently on vancomycin and zosyn.
Since arrival here no recorded fevers, bp stable, wbc initally 16 now 11, hgb declined to 6.4 today, plt initially 1200, now 990, L shift noted on arrival, cr 0.5, lactic acid 1.5, t bili 0.2, ast 16, alt 10, alk phos 174, MRI ' 1. By history the
patient had an abscess drained earlier today, there is a residual fluid collection within the anterior abdominal wall to the right of midline, most consistent with a postoperative seroma or residual fluid collection/abscess. 2. Additionally there
is an area of multiple air bubbles and stranding slightly lower in the right anterior subcutaneous tissues of the pelvis, could this be the area of previous drainage? Please correlate with previous history. 3. Midline open wound in the pelvis.'
Past History
Additional Past Medical History:
DVT
depression
trigeminal neuralgia
Additional Past Surgical History:
hysterectomy
c section
Allergy History:
No Known Allergies Allergy (Verified 08/13/23 12:14)
Medications Reviewed: Yes
Social History
Tobacco: Non-Smoker
Alcohol: Daily (per family)
Drug: None
Family History
Family History: Not Pertinent
Review of Systems
Review of Systems
General: Negative Fever or Chills
All systems: All other systems were reviewed and were negative
Vital Signs
Temp Pulse Resp BP Pulse Ox
97.9 F 82 16 113/59 96
08/14/23 12:51 08/14/23 12:51 08/14/23 12:51 08/14/23 12:51 08/14/23 08:35
Physical Exam
Physical Exam
Constitutional: No Acute Distress
Cardiovascular: Regular Rate and S1/S2; Negative Murmur or Rub
Pulmonary: Clear and Symmetric; Negative Wheezes, Rales or Rhonchi
Gastrointestinal: Soft, Non Tender, Non Distended and Normal Bowel Sounds
Skin: Warm and Dry; Negative Rash or Jaundice
Wound: Other (surgical site packed - not removed as patient refused - purulent/bloody drainage in both sites; skin is full, no surrounding eythema)
Lab / Diagnostic Study Results
08/14/23 06:25
08/14/23 06:25
Abs Immat Gran (auto) 0.1 10^3/uL (0-0.05) H 08/13/23 13:37
Absolute Neuts (auto) 12.7 10^3/uL (1.4-6.5) H 08/13/23 13:37
Absolute Lymphs (auto) 1.5 10^3/uL (1.2-3.4) 08/13/23 13:37
Absolute Monos (auto) 1.5 10^3/uL (0.1-0.6) H 08/13/23 13:37
Absolute Basos (auto) 0.1 10^3/uL (0-0.2) 08/13/23 13:37
Immature Gran % 0.9 % (0-0.5) H 08/13/23 13:37
Neutrophils % 79.7 % (42.2-75.2) H 08/13/23 13:37
Lymphocytes % 9.6 % (20.5-51.1) L 08/13/23 13:37
Monocytes % 9.3 % (1.7-9.3) 08/13/23 13:37
Eosinophils % 0.1 % (0-6) 08/13/23 13:37
Basophils % 0.4 % (0-2) 08/13/23 13:37
Lactic Acid 1.5 mmol/L (0.7-2.0) 08/13/23 13:37
Microbiology Results
Micro:
08/13/23 13:52 Blood Culture - Preliminary
Blood/Venous No Growth in 24 hours- Final report to follow
08/13/23 13:37 Blood Culture - Preliminary
Blood/Venous Positive culture in progress
Gram Stain - Preliminary
08/13/23 19:17 MRSA Screen - Pending
Nose
Assessment / Plan
Surgical Site Infection - abdominal wall
Thrombocytosis - reactive due to infection
- 4/19 IR culture with strep species - unable to ID further
- 1/2 blood cultures from arrival with CONS most likely contaminant if only in 1 set
- repeat blood cultures x2 ordered
- 5/3 wound culture - few gpcs
- 5/3 anaerobic culture in progress
- most likely a bacterial infection, however if not responding to typical treatments may consider fungal and afb cultures
- agree with vancomycin and zosyn at this time
Hyperglycemia
- a1c in the AM
--- NOTE | 2023-08-14 14:39 | CM ---
Patient seen bedside, initial assessment completed. Patient resides with her spouse in a multiple story home, 4/5 steps to enter, bedroom on the first floor. Patient denies DME, reports [facility] in the past for wound care, denies SNF. Patient confirms
PCP Dr. Cloud, pharmacy [facility] in [place], denies prescription coverage. CM will continue to follow for all discharge planning needs.
Plan; home no needs likely.
[2023-08-14 15:57] VITALS: BP 119/70
--- NOTE | 2023-08-14 16:26 | PTCARENOTE ---
Pt received 1 unit PRBC without difficulty.
[2023-08-14 23:00] VITALS: BP 109/66
[2023-08-15] MEDS: NSS 1000 IV (00:18)
[2023-08-15] MEDS: ZOSYN 50 IV ×4 (01:01→20:08)
[2023-08-15] MEDS: VANCOCIN 200 IV (06:02)
[2023-08-15] MEDS: TYLENOL 650 MG PO ×3 (06:06→20:08)
[2023-08-15 07:00] VITALS: BP 117/66
[2023-08-15 07:00] LABS: Hematocrit 23.5 % (37.0-47.0); Mean Corp Hgb Conc. 33.2 g/dL (33.0-37.0); Mean Corpuscular Hgb 29.4 pg (27.0-31.0); Mean Corpuscular Volume 88.7 fL (81.0-99.0); Platelet Count 918 10^3/uL (130-400); Red Blood Cell Count 2.65 10^6/uL (4.20-5.40); Red Cell Dist. Width 16.3 % (11.5-14.5); White Blood Cell Count 8.2 10^3/uL (4.8-10.8)
[2023-08-15 07:47] LABS: Hemoglobin 7.8 g/dL (12.0-16.0)
[2023-08-15 07:50] LABS: Blood Urea Nitrogen 7 mg/dl (7-17); Calcium 8.9 mg/dl (8.4-10.2); Carbon Dioxide 19 mmol/L (22-30); Chloride 108 mmol/L (98-107); Estimated Creatinine Clearance 58 ml/min; Glucose 111 mg/dl (70-99); Potassium 4.5 mmol/L (3.5-5.1); Sodium 134 mmol/L (135-145); eGFR > 60.00
[2023-08-15] MEDS: REFRESH CELLUVISC GEL BOTH EYES (07:53)
[2023-08-15] MEDS: ELIQUIS 5 MG PO ×2 (07:53→20:08)
[2023-08-15 08:46] LABS: Glycohemoglobin (HgbA1c) 5.8 % (4.0-5.6)
--- NOTE | 2023-08-15 09:04 | W.PN.PLAS ---
Progress Note
Subjective Data
Pt anxious that 'I have an infection in my body'. No fever, chills. Feeling better without abdominal pain.
Subjective: Tolerating Regular Diet and Ambulatory
Objective Data
Vital Signs
Temp Pulse Resp BP Pulse Ox
98.5 F 76 16 117/66 98
08/15/23 07:00 08/15/23 07:00 08/15/23 07:00 08/15/23 07:00 08/15/23 08:25
Intake and Output
08/14/23 08/15/23 08/16/23
06:59 06:59 06:59
Intake Total 1660 / 1660 3700 / 3700
Balance 1660 / 1660 3700 / 3700
Intake:
Oral fluids 480 / 480 1380 / 1380
IV fluids (Total) 880 / 880 1420 / 1420
IV piggybacks 300 / 300 400 / 400
Blood products 250 / 250
Blood Product Amount Infused ( 250 / 250
mL)
Packed Rbc Leukoreduced Unit 250 / 250
[id number]
Other:
Number of approximated MODERATE 1 3
amounts of urine
Lab Results
08/15/23 06:45
08/15/23 06:45
Microbiology Results
08/13/23 13:37 Blood/Venous Blood Culture - Preliminary
Positive culture in progress
08/13/23 13:37 Blood/Venous Gram Stain - Final
08/13/23 13:52 Blood/Venous Blood Culture - Preliminary
No Growth in 24 hours- Final report to follow
Physical Exam
Wound:
Dressings removed. Abscess cavity with significant improvement over yesterday. minimal serosanguineous drainage. No purulence .
Wound: Malodorius: No
Assessment / Plan
Wound stable. Patient continues to improve. Await wound cultures. Appreciate ID input. Continue antibiotics
Visiting Nurse care ordered / not ordered.
Wound care discussed with patient.
Follow up within days.
Follow up with family physician for any medical issues.
Patient given any appropriate scripts at office pre op visit.
--- NOTE | 2023-08-15 09:46 | W.PN.HOSP.TC ---
Today's Communication/Plan
-
Awaiting final disposition on blood cultures which look to be may be contaminant and awaiting subsequent blood cultures
Continues on vancomycin and Zosyn/ID following
Supplying IV infusion today of iron and supplement as outpatient
Continue wound care as per plastic surgery and on follow-up
Assessment / Plan
Assessment / Plan
73-year-old female with a past medical history of trigeminal neuralgia, depression, DVT on Eliquis who presents to the emergency room for evaluation of surgical wound infection. Patient had an abdominoplasty in June with Dr. Crook. This has been
complicated by infection patient has had abscesses drained by interventional radiolog two weeks ago. Most recently finished a course of Bactrim 4 days ago for wound infection. patient stated worsening pain at the site. she could not move. it was
foul smelling. Today had a follow-up visit in the office with Dr. Crook. the wound was opened up and had foul-smelling purulent drainage that was sent for culture. Wound was packed and patient was referred to the emergency room to be admitted
for IV antibiotics and wound care. Patient has not had any fevers or chills. denied MCKNIGHT, dizzy or syncopal episode. denied chest pain, sob. denied n/v/d. denied dysuria or hematuria.
received iv vanco and Zosyn. admitting for further management.
# Sepsis likely from infected surgical wound status post abdominoplasty
-Prelim results of blood cultures show gram-negative staph/MRSA was negative
-I&D at plastic surgeon office
-Cultures wound and blood
-Saline moistened Kerlix dressing to abdominal wound twice a day with saline moistened ribbon gauze packing to her right lower abdominal wound twice a day
-Wound care consulted
-Sepsis as evident by WBC 16.0, tachycardia
-blood culture sent from ER
-fluids continued
-iv vanco and Zosyn continued/ID consult and will assess further for follow-up antibiotic course
# Acute on chronic anemia
-Hemoglobin 8.1>>> now at 6.4>>> 7.8 after single unit of packed red blood cells
-Partly dilutional/but also could be in relation to chronic blood loss
-No active bleeding
-Continue to monitor/will give 1 unit of packed red blood cells
-obtain iron levels which were all depressed and will place on iron infusion while here may be a good idea to send home with iron supplementation
#thrombocytosis likely reactive from acute infection
-platelets 1205
-ctm
# Hyponatremia/metabolic acidosis likely dehydration
-Sodium 130, CO2 18
-Normal saline continued
-Monitor BMP in a.m.
# History of DVT
-Eliquis continued
# Depression
-Tegretol continued
# CODE STATUS
-Full code
Anticipated Discharge: Within 24 hours
Subjective/Interval History
-
Date of Service: August 15, 2023
She is anxious but was encouraged by
Her wound is looking better per plastic surgery assessment again this morning she was disappointed over the possible need for further stay in regards to her blood infection. She tolerated the blood transfusion well without issue.
Objective Data
-
Labs:
Laboratory Results
08/15/23
06:45
WBC 8.2
Hgb 7.8 L D
Hct 23.5 L
Plt Count 918 H
Sodium 134 L
Potassium 4.5
Chloride 108 H
Carbon Dioxide 19 L
BUN 7
Creatinine 0.4 L
Glucose 111 H
Calcium 8.9
Vital Signs:
Vital Signs
Temp Pulse Resp BP Pulse Ox
98.5 F 76 16 117/66 98
08/15/23 07:00 08/15/23 07:00 08/15/23 07:00 08/15/23 07:00 08/15/23 08:25
I&O
08/14/23 08/15/23 08/16/23
06:59 06:59 06:59
Intake Total 1660 / 1660 3700 / 3700
Balance 1660 / 1660 3700 / 3700
Review of Systems
-
History Source: Patient
Constitutional: Reports No Symptoms
EENT: Reports No Symptoms Reported
Physical Exam
-
General: Well Developed and Other ([place])
HEENT: Normocephalic
Respiratory: Clear to Auscultation
Cardiac: Regular Rhythm
GI: Soft, Nontender and Nondistended
Neuro: Awake, Alert and Oriented
Psych: Calm
Data Reviewed
-
Total Time Spent with Patient (in minutes): 56
Labs: Labs Reviewed by me (Hemoglobin up to 7.8/platelet count 918 pending down/in 134 stable//bicarb of 19 improving and iron levels all depressed)
--- NOTE | 2023-08-15 10:59 | PHA.VAN.FU ---
Vancomycin Assessment / Plan
- Assessment
Renal Function: Stable
WBC's are: WNL
In the past 24 hrs, patient has been: Afebrile
Concomitant Antimicrobials: Piperacillin/tazo
- Dosing Plan
Continue: vancomycin 1 gram q 24h - first dose 08/14/23 0600
- Monitoring Plan
Peak Level: 08/16/23 0830 - after 4th total dose
Trough Level: 08/17/23 0530
- Follow Up
Pharmacy will continue to follow.
Vancomycin Follow UP
- -
Patient Age: 73
Patient Sex: Female
Vancomycin Day #: 3
Indication: Skin And Soft Tissue (POST-OP SITE INFECTION/SEPSIS)
Requesting Provider: KEMRIT
Height / Weight:
Height 4 ft 11 in
Actual Weight 50.7 kg
Pertinent Past Medical History: RECENT ABDOMINOPLASTY
- Vital Signs / Lab Results
Temp Pulse Resp BP Pulse Ox
98.5 F 76 16 117/66 98
08/15/23 07:00 08/15/23 07:00 08/15/23 07:00 08/15/23 07:00 08/15/23 08:25
Lab Results - Hematology
08/13/23 08/14/23 08/15/23
13:37 06:25 06:45
WBC 16.0 H 11.2 H 8.2
Lab Results - Chemistry
08/13/23 08/14/23 08/15/23
13:37 06:25 06:45
BUN 16 13 7
Creatinine 0.4 L 0.5 L 0.4 L
Estimated Creat Clear 58 58 58
Albumin 3.1 L
08/13/23
13:37
Lactic Acid 1.5
Microbiology Results
08/13/23 13:37 Blood Culture - Preliminary
Blood/Venous Coagulase neg. staphylococcus
Additional testing on request
Gram Stain - Final
08/13/23 19:17 MRSA Screen - Final
Nose No Methicillin Resistant Staphylococcus aureus isolated.
08/13/23 13:52 Blood Culture - Preliminary
Blood/Venous No Growth in 24 hours- Final report to follow
[2023-08-15] MEDS: TEGRETOL 200 MG PO (13:11)
--- NOTE | 2023-08-15 13:23 | W.PN.ID1 ---
Date of Service
Date of Service: August 15, 2023
Today's Communication
- agree with vancomycin and zosyn at this time; like switch to oral therapy tomorrow pending cultures
Assessment / Plan
Surgical Site Infection - abdominal wall
Thrombocytosis - reactive due to infection
- 07/29 IR culture with strep species - unable to ID further
- 1/2 blood cultures from arrival with CONS most likely contaminant if only in 1 set
- repeat blood cultures x2 ordered
- 08/12 wound culture - few gpcs
- 08/12 anaerobic culture in progress
- a1c is normal
- agree with vancomycin and zosyn at this time; like switch to oral therapy tomorrow pending cultures
Chief Complaint
-: Other (surgical site infection)
Subjective / Review of Systems
afebrile
bp stable
leukocytosis resolved today
ongoing thrombocytosis
cr 0.4
granulation tissue in the wound bed of the midline wound
left site no erythema, packing with blood staining but no purulence; no erythema, warmth, tenderness
Vital Signs / Physical Exam
Vital Signs
Vital Signs
Temp Pulse Resp BP Pulse Ox
98.5 F 76 16 117/66 98
08/15/23 07:00 08/15/23 07:00 08/15/23 07:00 08/15/23 07:00 08/15/23 08:25
Physical Exam
Constitutional: No Acute Distress
Cardiovascular: Regular Rate and S1/S2; Negative Murmur or Rub
Pulmonary: Clear and Symmetric; Negative Wheezes or Rales
Gastrointestinal: Soft, Non Tender, Non Distended and Normal Bowel Sounds
Skin: Warm and Dry; Negative Rash or Jaundice
Wound: Other (left site no erythema, packing with blood staining but no purulence; no erythema, warmth, tenderness; midline wound with granulation tissue)
Objective Data
Lab Data
Lab Results
08/15/23 06:45
08/15/23 06:45
Estimated Creat Clear 58 ml/min 08/15/23 06:45
Lactic Acid 1.5 mmol/L (0.7-2.0) 08/13/23 13:37
Total Bilirubin 0.2 mg/dl (0.2-1.3) 08/13/23 13:37
AST 16 U/L (14-36) 08/13/23 13:37
ALT 10 U/L (0-35) 08/13/23 13:37
Alkaline Phosphatase 174 U/L (38-126) H 08/13/23 13:37
Most recent labs reviewed.
Micro Results:
08/13/23 13:37 Blood Culture - Preliminary
Blood/Venous Coagulase neg. staphylococcus
Additional testing on request
Gram Stain - Final
08/13/23 19:17 MRSA Screen - Final
Nose No Methicillin Resistant Staphylococcus aureus isolated.
08/14/23 17:43 Blood Culture - Pending
Blood/Venous
08/14/23 17:00 Blood Culture - Pending
Blood/Venous
08/13/23 13:52 Blood Culture - Preliminary
Blood/Venous No Growth in 24 hours- Final report to follow
[2023-08-15] MEDS: FERRLECIT 110 MG IV (13:52)
[2023-08-15 14:46] LABS: Erythrocyte Sed Rate 84 mm/hour (0-20)
[2023-08-15 15:00] VITALS: BP 122/68
[2023-08-15 15:06] VITALS: BMI 22.6
[2023-08-15 23:45] VITALS: BP 105/59
[2023-08-16] MEDS: ZOSYN 50 IV ×3 (01:02→13:19)
[2023-08-16] MEDS: VANCOCIN 200 IV (05:40)
[2023-08-16] MEDS: TYLENOL 650 MG PO ×3 (05:46→14:26)
[2023-08-16 07:30] VITALS: BP 127/73
[2023-08-16] MEDS: REFRESH CELLUVISC GEL 1 DROPS BOTH EYES (07:51)
[2023-08-16] MEDS: ELIQUIS 5 MG PO (07:51)
[2023-08-16] MEDS: TEGRETOL 200 MG PO (08:09)
[2023-08-16 08:39] LABS: Hematocrit 27.1 % (37.0-47.0); Hemoglobin 8.9 g/dL (12.0-16.0); Mean Corp Hgb Conc. 32.8 g/dL (33.0-37.0); Mean Corpuscular Hgb 29.5 pg (27.0-31.0); Mean Corpuscular Volume 89.7 fL (81.0-99.0); Platelet Count 1035 10^3/uL (130-400); Red Blood Cell Count 3.02 10^6/uL (4.20-5.40); Red Cell Dist. Width 16.6 % (11.5-14.5); White Blood Cell Count 9.4 10^3/uL (4.8-10.8)
--- NOTE | 2023-08-16 08:55 | PHA.VAN.FU ---
Vancomycin Assessment / Plan
- Assessment
Renal Function: Stable
WBC's are: WNL
In the past 24 hrs, patient has been: Afebrile
Concomitant Antimicrobials: Piperacillin/Tazobactam
- Dosing Plan
Continue: 1000mg Q24H
- Monitoring Plan
Peak Level: 08/15 @ 08:30 (Pending)
Trough Level: 08/16 @05:30
- Follow Up
Pharmacy will continue to follow.
Vancomycin Follow UP
- -
Patient Age: 73
Patient Sex: Female
Vancomycin Day #: 4
Indication: Skin And Soft Tissue (POST-OP SITE INFECTION/SEPSIS)
Requesting Provider: KERMIT
Height / Weight:
Height 4 ft 11 in
Actual Weight 50.7 kg
Pertinent Past Medical History: RECENT ABDOMINOPLASTY
- Vital Signs / Lab Results
Temp Pulse Resp BP Pulse Ox
98.1 F 70 18 127/73 97
08/16/23 07:30 08/16/23 07:30 08/16/23 07:30 08/16/23 07:30 08/16/23 07:30
Lab Results - Hematology
08/13/23 08/14/23 08/15/23
13:37 06:25 06:45
WBC 16.0 H 11.2 H 8.2
08/16/23
08:29
WBC 9.4
Lab Results - Chemistry
08/13/23 08/14/23 08/15/23
13:37 06:25 06:45
BUN 16 13 7
Creatinine 0.4 L 0.5 L 0.4 L
Estimated Creat Clear 58 58 58
Albumin 3.1 L
08/13/23
13:37
Lactic Acid 1.5
Microbiology Results
08/14/23 17:43 Blood Culture - Preliminary
Blood/Venous No Growth in 24 hours- Final report to follow
08/14/23 17:00 Blood Culture - Preliminary
Blood/Venous No Growth in 24 hours- Final report to follow
08/13/23 13:37 Blood Culture - Preliminary
Blood/Venous Coagulase neg. staphylococcus
Additional testing on request
Gram Stain - Final
08/13/23 13:52 Blood Culture - Preliminary
Blood/Venous No Growth in 48 hours- Final report to follow
08/13/23 19:17 MRSA Screen - Final
Nose No Methicillin Resistant Staphylococcus aureus isolated.
[2023-08-16 09:12] LABS: Blood Urea Nitrogen 6 mg/dl (7-17); Calcium 9.8 mg/dl (8.4-10.2); Carbon Dioxide 19 mmol/L (22-30); Chloride 108 mmol/L (98-107); Estimated Creatinine Clearance 58 ml/min; Glucose 102 mg/dl (70-99); Potassium 4.2 mmol/L (3.5-5.1); Sodium 138 mmol/L (135-145); eGFR > 60.00
[2023-08-16 09:16] LABS: Vancomycin Peak 22.6 ug/ml (18-26)
--- NOTE | 2023-08-16 09:22 | W.PN.PLAS ---
Progress Note
Subjective Data
Feeling much better. Much better spirits today. No new complaints
Subjective: Tolerating Regular Diet
Objective Data
Vital Signs
Temp Pulse Resp BP Pulse Ox
98.1 F 70 18 127/73 97
08/16/23 07:30 08/16/23 07:30 08/16/23 07:30 08/16/23 07:30 08/16/23 07:30
Intake and Output
08/15/23 08/16/23 08/17/23
06:59 06:59 06:59
Intake Total 3700 / 3700 2009
Balance 3700 / 3700 2009
Intake:
Oral fluids 1380 / 1380 900 / 900
IV fluids (Total) 1420 / 1420 600 / 600
IV piggybacks 400 / 400 510 / 510
Blood products 250 / 250
Blood Product Amount Infused ( 250 / 250
mL)
Packed Rbc Leukoreduced Unit 250 / 250
[id number]
Other:
Number of approximated MODERATE 3 1
amounts of urine
Lab Results
08/16/23 08:29
08/16/23 08:29
Microbiology Results
08/14/23 17:43 Blood/Venous Blood Culture - Preliminary
No Growth in 24 hours- Final report to follow
08/14/23 17:00 Blood/Venous Blood Culture - Preliminary
No Growth in 24 hours- Final report to follow
08/13/23 13:37 Blood/Venous Blood Culture - Preliminary
Coagulase neg. staphylococcus
Additional testing on request
08/13/23 13:37 Blood/Venous Gram Stain - Final
08/13/23 13:52 Blood/Venous Blood Culture - Preliminary
No Growth in 48 hours- Final report to follow
08/13/23 19:17 Nose MRSA Screen - Final
No Methicillin Resistant Staphylococcus aureus isolated.
Physical Exam
Wound:
wound is clean . Unchanged from yesterday
Assessment / Plan
Wound stable. Patient continues to improve. Doing well. Patient anxious to go.
Patient is stable. Cultures, possible PO antibiotics pending
will arrange for Evelin Cao to possibly incorporate VAC into new abscess cavity wound
Visiting Nurse care ordered / not ordered.
Wound care discussed with patient.
Follow up within days.
Follow up with family physician for any medical issues.
Patient given any appropriate scripts at office pre op visit.
--- NOTE | 2023-08-16 10:53 | CM ---
Patient seen bedside.
Per patient probable d/c home today.
Wound care to apply wound vac (had prior to admission)
Current with [facility], referral sent via [facility] and to Eri at [facility].
IMM completed.
Plan: home with [facility]
--- NOTE | 2023-08-16 11:25 | W.PN.HOSP.TC ---
Addendum entered and electronically signed by Deon Andino MD 08/17/23 15:14:
Moderate protein calorie malnutrition
Addendum entered and electronically signed by Deon Andino MD 08/16/23 14:03:
Time of discharge 38 minutes
Original Note:
Today's Communication/Plan
-
Monitor vital signs and see plan
ID to see today
Possible discharge if transition to p.o. antibiotics
Patient will follow-up with plastics and wound care outpatient
Assessment / Plan
Assessment / Plan
73-year-old female with a past medical history of trigeminal neuralgia, depression, DVT on Eliquis who presents to the emergency room for evaluation of surgical wound infection. Patient had an abdominoplasty in June with Dr. Crook. This has been
complicated by infection patient has had abscesses drained by interventional radiolog two weeks ago. Most recently finished a course of Bactrim 4 days ago for wound infection. patient stated worsening pain at the site. she could not move. it was
foul smelling. Today had a follow-up visit in the office with Dr. Crook. the wound was opened up and had foul-smelling purulent drainage that was sent for culture. Wound was packed and patient was referred to the emergency room to be admitted
for IV antibiotics and wound care. Patient has not had any fevers or chills. denied MCKNIGHT, dizzy or syncopal episode. denied chest pain, sob. denied n/v/d. denied dysuria or hematuria.
received iv vanco and Zosyn. admitting for further management.
# Sepsis likely from infected surgical wound status post abdominoplasty
-Prelim results of blood cultures show gram-negative staph/MRSA was negative
-I&D at plastic surgeon office
-Cultures wound and blood, blood culture 5/4 NGTD
-Saline moistened Kerlix dressing to abdominal wound twice a day with saline moistened ribbon gauze packing to her right lower abdominal wound twice a day
-Wound care consulted
-Sepsis as evident by WBC 16.0, tachycardia
-blood culture sent from ER 1 bottle coag enma alfonso likely contaminant
-fluids continued
-iv vanco and Zosyn continued/ID consult and will assess further for follow-up antibiotic course
# Acute on chronic anemia
-Hemoglobin now 8.9 after single unit of packed red blood cells
-Partly dilutional/but also could be in relation to chronic blood loss
-No active bleeding
-Continue to monitor/will give 1 unit of packed red blood cells
-obtain iron levels which were all depressed and will place on iron infusion while here may be a good idea to send home with iron supplementation
#thrombocytosis likely reactive from acute infection
-ctm
patient to f/u outpatient with heme
# Hyponatremia/metabolic acidosis likely dehydration
resolved
# History of DVT
-Eliquis continued
# Depression
-Tegretol continued
# CODE STATUS
-Full code
General: Well Developed
HEENT: Normocephalic
Respiratory: Clear to Auscultation
Cardiac: Regular Rhythm
GI: Soft, Nontender and Nondistended
Neuro: Awake, Alert and Oriented
Psych: Calm
Anticipated Discharge: Today
Subjective/Interval History
-
Date of Service: August 16, 2023
denies pain
Objective Data
-
Labs:
Laboratory Results
08/16/23
08:29
WBC 9.4
Hgb 8.9 L
Hct 27.1 L
Plt Count 1035 H
Sodium 138
Potassium 4.2
Chloride 108 H
Carbon Dioxide 19 L
BUN 6 L
Creatinine 0.5 L
Glucose 102 H
Calcium 9.8
Vital Signs:
Vital Signs
Temp Pulse Resp BP Pulse Ox
98.1 F 70 18 127/73 97
08/16/23 07:30 08/16/23 07:30 08/16/23 07:30 08/16/23 07:30 08/16/23 07:30
I&O
08/15/23 08/16/23 08/17/23
06:59 06:59 06:59
Intake Total 3700 / 3700 2009
Balance 3700 / 3700 2009
--- NOTE | 2023-08-16 12:22 | WOUNDNOTE ---
WON RN note: Patient admitted with postoperative wound infection/abscess.
See H&P for complete history.
PMH: Abdominoplasty this past june by Dr. Crook. Wound revision and abscess drainage recently. Goes to [facility] for management of wound vac once a week, along with visiting nurses at home 2 x and follow up with Dr. Crook.
Wound Location and type/assessment: Patient admitted with: Infected abdominal surgical wound. R lateral abdomen along incision line with small opening, abscess recently drained. Moderate to large Serosanguineous drainage, no odor. [place] from
9 O'clock to 12 O'clock, deepest is laterally at approximately 10cm, connects to larger mid abdominal open wound. Larger mid wound is pink with granulation tissue, connects to proximal small opening. Patient has home vac unit at bedside and vac
dressing supplies.
Appetite: Good, encouraged protein in diet.
Pressure redistribution devices in place: Accumax, patient is ad miguel.
Plan: Spoke to Dr. Crook regarding wounds and plan for wound vac dressing today. Dr. Browne made aware unable to pack black foam into new R lateral open area. Instead changed 1/4' iodoform packing strip leaving tail end visible, covered opening with
piece of black foam. Black foam applied to mid abdominal wound and proximal wound, draped all periwound skin with Tegaderm. Placed bridge from R lateral smaller opening to larger wound to ensure better collection of drainage into wound vac unit, set
to 125mmhg. Used patient's own home vac unit. Dr. Crook approved of the above. Patient teaching done along with nurse and updated discharge instructions with detailed instructions. Updated care plan and will follow as needed. Updated Dr. Quintanilla
on the above dressing change.
Note to case management of equipment requested for discharge: Continue VN
Follow up at wound care center and Dr. Crook as scheduled upon discharge.
[2023-08-16] MEDS: FERRLECIT 110 MG IV (13:20)
--- NOTE | 2023-08-16 13:51 | PN.CDI ---
CDI
- -
CDI:
Physician Documentation Request
Admit Date: 08/13/23 15:24
Dear Doctor Sina,
Patient admitted with sepsis.
08/14 Nutrition note, 'Per ASPEN/AND guidelines, pt meets for moderate malnutrition in the context of chronic illness as evidenced by <75% intake est needs x 3 months, 13.3% weight loss x 3 months.
Please provide in your progress notes, additional specificity regarding the severity of the malnutrition:
Moderate
Mild
Other (please specify)
[place] Criteria ([facility] Hospitalist 2017)
2 or more criteria must be present for either
non severe or severe malnutrition
Note that the criteria differs related to the
presence of an acute or chronic illness
Chronic Illness
Energy Intake Non Severe: <75% for >1 month
Severe: <75% for >1 month
Weight Loss Non Severe: 5% over 1 month
7.5% over 3 months
10% over 6 months
20% over 1 year
Severe: >5% over 1 month
>7.5% over 3 months
>10% over 6 months
>20% over 1 year
Body Fat Non Severe: Mild Loss
Severe: Severe Loss
Muscle Mass Non Severe: Mild Loss
Severe: Severe Loss
Fluid Accumulation Non Severe: Mild Accumulation
Severe: Moderate to severe
accumulation
Reduced [employer] Strength Non Severe: N/A
Severe: Measurably reduced
Use of terms such as suspected, likely, concern for, or probable (associated with a specific diagnosis that is being evaluated, monitored, or treated as if it exists) are acceptable and can be coded in the inpatient setting, when documented at the
time of discharge.
Thank you,
Mague SANCHES,RN,CCDS
CDI Specialist
Available via [facility] text
Please use your independent medical judgment in providing your response.
--- NOTE | 2023-08-16 14:02 | W.DCSUMMARY ---
Discharge Summary
Discharge Data
Date of Admission: 08/13/23
Date of Discharge: 08/16/23
-
Pending Results: No
Hospital Course
73-year-old female with past medical history of trigeminal neuralgia, depression, DVT, recent abdominoplasty came to the hospital with sepsis secondary to infected surgical wound from recent abdominoplasty. Patient admission blood culture 1 bottle
was positive for coag negative staph which was likely thought was contaminant. Patient was seen by infectious disease throughout hospitalization and was initially started on IV Lasix which was later transitioned to p.o. Lasix prior to discharge.
Patient was also seen by plastic surgery throughout hospitalization. On this hospitalization patient hemoglobin was also low so received blood transfusion. There was no signs of any active bleeding. Patient also had persistent thrombocytosis for
which patient instructed to follow-up with hematology outpatient. Once patient symptoms were improving, she was then discharged home with instructions to follow-up with all her physicians outpatient.
Discharge Plan
-
Patient Disposition: Home (Routine Discharge)
Discharge Diagnosis/Procedures: Sepsis secondary to infected surgical wound
Acute on chronic anemia
Thrombocytosis
Hyponatremia
Diet: As tolerated
Activity: As tolerated
Driving Restrictions: As prior to admission
Bathing Restrictions: None
Blood Work: CBC next week with primary care provider
Activity Restrictions/Additional Instructions:
Wound Care Instructions
Mid and proximal abdomen, Black foam Continuous at 125 mmHg change M-W-F and prn leakage.
R side of abdomen use Iodoform packing strips 1/4' with tail visible and black foam over opening, bridged to larger wound vac dressing. Change when other vac dressing being changed.
Follow up at wound care center call for an appointment.
Referrals:
Elvis Hernandez, DO [Active] -
Solo Crook MD [Active] -
UNKNOWN - PT DOES,NOT KNOW [Family Provider] - in less than 1 week
Prescriptions:
New
Eliquis 5 mg Tablet
5 mg PO BID Qty: 60 0RF
doxycycline monohydrate 100 mg capsule
100 mg PO BID Qty: 20 0RF
amoxicillin-pot clavulanate 875-125 mg tablet
1 tab PO Q12H Qty: 20 0RF
Continued
carbamazepine [Tegretol] 200 mg Tablet
200 mg PO BID PRN (Reason: mild pain)
ascorbic acid (vitamin C) [Vitamin C] 1,000 mg Tablet
1,000 mg PO DAILY
acetaminophen [Tylenol Extra Strength] 500 mg Tablet
1,000 mg PO Q6H PRN (Reason: mild pain)
carboxymethylcellulose sodium 1 % Drops, Liquid Gel
1 drp BOTH EYES DAILY
Discontinued
Eliquis DVT-PE Treat 30D Start 5 mg (74 tabs) tablets,dose pack
5 mg PO BID
Dakin's Solution 0.125 % Solution
1 applic TOPICAL MOWE
Discharge Orders:
Discharge Patient (As Directed); Ordered 08/16/23
Ordered By: Deon Andino
Discharge Date and Time
Discharge Date/Time: 08/16/23 17:12
Print Language: MALAY
--- NOTE | 2023-08-16 14:46 | W.PN.ID1 ---
Date of Service
Date of Service: August 16, 2023
Today's Communication
- switch to doxycycline and augmentin x10 more days
- follow up with me in 1.5-[address] Crook
Assessment / Plan
Surgical Site Infection - abdominal wall
Thrombocytosis - reactive due to infection
- 07/29 IR culture with strep species - unable to ID further
- /2 blood cultures from arrival with CONS most likely contaminant if only in 1 set
- repeat blood cultures x2 ordered
- /3 wound culture - wound culture diptheroids and VGS
- 5/3 anaerobic culture in progress
- switch to doxycycline and augmentin x10 more days
- follow up with me in 1.5-[address] Crook
Chief Complaint
-: Other (surgical site infection)
Subjective / Review of Systems
afebrile
bp stable
without leukocytosis
cr stable
blood cultures no growth to date
wound culture diptheroids and VGS
Vital Signs / Physical Exam
Vital Signs
Vital Signs
Temp Pulse Resp BP Pulse Ox
98.1 F 70 18 127/73 97
08/16/23 07:30 08/16/23 07:30 08/16/23 07:30 08/16/23 07:30 08/16/23 07:30
Physical Exam
Constitutional: No Acute Distress
Cardiovascular: Regular Rate and S1/S2; Negative Murmur or Rub
Pulmonary: Clear and Symmetric; Negative Wheezes or Rales
Gastrointestinal: Soft, Non Tender, Non Distended and Normal Bowel Sounds
Skin: Warm and Dry; Negative Rash or Jaundice
Wound: Other (wound vac in place over midlines; occlusive dressing lateral)
Objective Data
Lab Data
Lab Results
08/16/23 08:29
08/16/23 08:29
ESR Cancelled 08/15/23 13:26
Estimated Creat Clear 58 ml/min 08/16/23 08:29
Lactic Acid 1.5 mmol/L (0.7-2.0) 08/13/23 13:37
Total Bilirubin 0.2 mg/dl (0.2-1.3) 08/13/23 13:37
AST 16 U/L (14-36) 08/13/23 13:37
ALT 10 U/L (0-35) 08/13/23 13:37
Alkaline Phosphatase 174 U/L (38-126) H 08/13/23 13:37
C-Reactive Protein Cancelled 08/15/23 13:26
Most recent labs reviewed.
Micro Results:
08/13/23 13:52 Blood Culture - Preliminary
Blood/Venous No Growth in 72 hours- Final report to follow
08/14/23 17:43 Blood Culture - Preliminary
Blood/Venous No Growth in 24 hours- Final report to follow
08/14/23 17:00 Blood Culture - Preliminary
Blood/Venous No Growth in 24 hours- Final report to follow
08/13/23 13:37 Blood Culture - Preliminary
Blood/Venous Coagulase neg. staphylococcus
Additional testing on request
Gram Stain - Final
08/13/23 19:17 MRSA Screen - Final
Nose No Methicillin Resistant Staphylococcus aureus isolated.
[2023-08-16 15:30] VITALS: BP 125/71
== END 2023-08-16 17:12 | disposition home or self-care (01) | DRG 862 ==
LOC: 4 WEST ACU 15:24
PROVIDERS: Registered Nurse; ADMITTING PHYSICIAN Internal Medicine; ATTENDING PHYSICIAN Internal Medicine; CONSULT PHYSICIAN Student in an Organized Health Care Education/Training Program; EMERGENCY PHYSICIAN Emergency Medicine
PROC: 30233N1 Transfusion of Nonautologous Red Blood Cells into Peripheral Vein, Percutaneous Approach (ICD-10-PCS; 2023-08-14)
DX: T81.41XA Infection following a procedure, superficial incisional surgical site, initial encounter (principal); A41.9 Sepsis, unspecified organism; E87.1 Hypo-osmolality and hyponatremia; E87.20 Acidosis, unspecified; E44.0 Moderate protein-calorie malnutrition; F32.A Depression, unspecified; G50.0 Trigeminal neuralgia; D75.839 Thrombocytosis, unspecified; D64.9 Anemia, unspecified; E86.0 Dehydration; R73.9 Hyperglycemia, unspecified; F10.11 Alcohol abuse, in remission; Z86.718 Personal history of other venous thrombosis and embolism; Z79.01 Long term (current) use of anticoagulants; Z68.22 Body mass index [BMI] 22.0-22.9, adult
CPT/HCPCS: 74177; 80048; 80053; 80202; 82607; 82746; 83036; 83540; 83550; 83605; 85025; 85027; 85652; 86140; 86850; 86900; 86901; 86920; 87040; 87070; 87075; 87150; 87205; 96365; 96366; 96375; 99284; J2916; P9016; Q9967

== ENCOUNTER → 2023-08-13 17:07 | Outpatient (REF) | payer MEDICARE, OTHER, SELFPAY | LOC: CLAB 17:07 | PROVIDERS: ATTENDING PHYSICIAN Specialist | DX: L02.211 Cutaneous abscess of abdominal wall (principal) | CPT/HCPCS: 87070; 87075; 87205 ==

== ENCOUNTER → 2023-08-20 13:08 | Outpatient (REF) | payer MEDICARE, OTHER, SELFPAY | LOC: WOUND 13:08 | PROVIDERS: ATTENDING PHYSICIAN Surgery; FAMILY PHYSICIAN Family Medicine | DX: T81.31XA Disruption of external operation (surgical) wound, not elsewhere classified, initial encounter (principal); Y83.8 Other surgical procedures as the cause of abnormal reaction of the patient, or of later complication, without mention of misadventure at the time of the procedure; S31.109A Unspecified open wound of abdominal wall, unspecified quadrant without penetration into peritoneal cavity, initial encounter; X58.XXXA Exposure to other specified factors, initial encounter; E78.00 Pure hypercholesterolemia, unspecified; E78.89 Other lipoprotein metabolism disorders; G50.0 Trigeminal neuralgia; Z79.01 Long term (current) use of anticoagulants | CPT/HCPCS: 97605; 99213 ==

== ENCOUNTER → 2023-08-27 10:44 | Outpatient (REF) | payer MEDICARE, OTHER, SELFPAY | LOC: WOUND 10:44 | PROVIDERS: ATTENDING PHYSICIAN Surgery; FAMILY PHYSICIAN Family Medicine | DX: T81.31XA Disruption of external operation (surgical) wound, not elsewhere classified, initial encounter (principal); S31.109A Unspecified open wound of abdominal wall, unspecified quadrant without penetration into peritoneal cavity, initial encounter; E78.00 Pure hypercholesterolemia, unspecified; E78.89 Other lipoprotein metabolism disorders; G50.0 Trigeminal neuralgia; Y83.8 Other surgical procedures as the cause of abnormal reaction of the patient, or of later complication, without mention of misadventure at the time of the procedure; X58.XXXA Exposure to other specified factors, initial encounter | CPT/HCPCS: 97605; 99213 ==

== ENCOUNTER → 2023-08-30 14:04 | Outpatient (REF) | payer MEDICARE, OTHER, SELFPAY ==
[2023-08-30 14:21] VITALS: BP 140/74; BP_SYST 84
== END ==
LOC: RADI 14:04
PROVIDERS: ATTENDING PHYSICIAN Specialist; FAMILY PHYSICIAN Family Medicine
DX: M79.5 Residual foreign body in soft tissue (principal)
CPT/HCPCS: 10120; 76942

== ENCOUNTER → 2023-09-10 13:53 | Outpatient (REF) | payer MEDICARE, OTHER, SELFPAY | LOC: WOUND 13:53 | PROVIDERS: ATTENDING PHYSICIAN Surgery; FAMILY PHYSICIAN Family Medicine | DX: T81.31XA Disruption of external operation (surgical) wound, not elsewhere classified, initial encounter (principal); S31.109S Unspecified open wound of abdominal wall, unspecified quadrant without penetration into peritoneal cavity, sequela; E78.00 Pure hypercholesterolemia, unspecified; E78.89 Other lipoprotein metabolism disorders; G50.0 Trigeminal neuralgia; Z79.01 Long term (current) use of anticoagulants; Y83.8 Other surgical procedures as the cause of abnormal reaction of the patient, or of later complication, without mention of misadventure at the time of the procedure | CPT/HCPCS: 97605; 99213 ==

== ENCOUNTER → 2023-09-17 11:05 | Outpatient (REF) | payer MEDICARE, OTHER, SELFPAY | LOC: WOUND 11:05 | PROVIDERS: ATTENDING PHYSICIAN Surgery; FAMILY PHYSICIAN Family Medicine | DX: T81.31XA Disruption of external operation (surgical) wound, not elsewhere classified, initial encounter (principal); S31.109A Unspecified open wound of abdominal wall, unspecified quadrant without penetration into peritoneal cavity, initial encounter; E78.00 Pure hypercholesterolemia, unspecified; E78.89 Other lipoprotein metabolism disorders; G50.0 Trigeminal neuralgia; Z79.01 Long term (current) use of anticoagulants; Y83.8 Other surgical procedures as the cause of abnormal reaction of the patient, or of later complication, without mention of misadventure at the time of the procedure; X58.XXXA Exposure to other specified factors, initial encounter | CPT/HCPCS: 99213 ==

== ENCOUNTER → 2023-09-22 17:33 | Outpatient (REF) | payer MEDICARE, OTHER, SELFPAY | LOC: OLAB 17:33 | PROVIDERS: ATTENDING PHYSICIAN Specialist | DX: S31.103A Unspecified open wound of abdominal wall, right lower quadrant without penetration into peritoneal cavity, initial encounter (principal) | CPT/HCPCS: 87070; 87077; 87186; 87205 ==

== ENCOUNTER → 2023-09-24 10:19 | Outpatient (REF) | payer MEDICARE, OTHER, SELFPAY | LOC: WOUND 10:19 | PROVIDERS: ATTENDING PHYSICIAN Surgery; FAMILY PHYSICIAN Family Medicine | DX: T81.31XA Disruption of external operation (surgical) wound, not elsewhere classified, initial encounter (principal); S31.109A Unspecified open wound of abdominal wall, unspecified quadrant without penetration into peritoneal cavity, initial encounter; E78.00 Pure hypercholesterolemia, unspecified; E78.89 Other lipoprotein metabolism disorders; G50.0 Trigeminal neuralgia; Y83.8 Other surgical procedures as the cause of abnormal reaction of the patient, or of later complication, without mention of misadventure at the time of the procedure | CPT/HCPCS: 97597 ==

== ENCOUNTER → 2023-10-08 13:39 | Outpatient (REF) | payer MEDICARE, OTHER, SELFPAY | LOC: WOUND 13:39 | PROVIDERS: ATTENDING PHYSICIAN Surgery; FAMILY PHYSICIAN Family Medicine | DX: T81.31XA Disruption of external operation (surgical) wound, not elsewhere classified, initial encounter (principal); S31.109A Unspecified open wound of abdominal wall, unspecified quadrant without penetration into peritoneal cavity, initial encounter; X58.XXXA Exposure to other specified factors, initial encounter | CPT/HCPCS: 99213 ==

== ENCOUNTER → 2023-10-22 09:04 | Outpatient (REF) | payer MEDICARE, OTHER, SELFPAY | LOC: WOUND 09:04 | PROVIDERS: ATTENDING PHYSICIAN Surgery; FAMILY PHYSICIAN Family Medicine | DX: T81.31XA Disruption of external operation (surgical) wound, not elsewhere classified, initial encounter (principal); S31.109A Unspecified open wound of abdominal wall, unspecified quadrant without penetration into peritoneal cavity, initial encounter; E78.00 Pure hypercholesterolemia, unspecified; E78.89 Other lipoprotein metabolism disorders; G50.0 Trigeminal neuralgia; Z79.01 Long term (current) use of anticoagulants; Y83.8 Other surgical procedures as the cause of abnormal reaction of the patient, or of later complication, without mention of misadventure at the time of the procedure; X58.XXXA Exposure to other specified factors, initial encounter | CPT/HCPCS: 99213 ==

== ENCOUNTER → 2024-06-26 16:07 | Outpatient (REF) | payer MEDICARE, OTHER, SELFPAY | LOC: RAD 16:07 | PROVIDERS: ATTENDING PHYSICIAN Family Medicine | DX: M46.1 Sacroiliitis, not elsewhere classified (principal) | CPT/HCPCS: 72202 ==

== ENCOUNTER → 2024-07-04 13:23 | Outpatient (REF) | payer MEDICARE, OTHER, SELFPAY | LOC: WDC 13:23 | PROVIDERS: ATTENDING PHYSICIAN Family Medicine | DX: Z12.31 Encounter for screening mammogram for malignant neoplasm of breast (principal); M81.0 Age-related osteoporosis without current pathological fracture | CPT/HCPCS: 77063; 77067; 77080 ==

== ENCOUNTER → 2024-09-19 07:05 | Outpatient (REF) | payer MEDICARE, OTHER, SELFPAY | LOC: MRI 3T 07:05 | PROVIDERS: ATTENDING PHYSICIAN Physical Medicine & Rehabilitation; FAMILY PHYSICIAN Family Medicine | DX: M54.16 Radiculopathy, lumbar region (principal) | CPT/HCPCS: 72148 ==